=== PATIENT | male | born 1935 | race Caucasian/White ===

== ENCOUNTER 2018-08-29 16:15 | Inpatient (IN) | payer MEDICARE, BC ==
[2018-08-29 16:52] LABS: #Lymphocytes 0.8 thou/uL (1.20-3.40); #Monocytes 0.4 thou/uL (0.11-0.59); #Neutrophils 8.8 thou/uL (1.40-6.50); %Eosinophils 0.1 % (0.0-10.0); %Lymphocytes 7.5 % (21.0-51.0); %Monocytes 4.1 % (0.0-10.0); %Neutrophils 88.3 % (42.0-75.0); Hemoglobin 13.8 g/dL (14.0-18.0); Mean Corpuscular HGB CONC 31.4 g/dL (32.0-36.0); Mean Corpuscular Hemoglobin 26.4 pg (27.0-31.0); Mean Corpuscular Volume 84.1 fL (78.0-98.0); Mean Platelet Volume 8.6 fL (7.4-10.4); Platelet Count 218 thou/uL (130-400); RBC Distribution Width 15.7 % (11.5-14.5); Red Blood Cell (RBC) Count 5.23 mill/uL (4.70-6.10)
[2018-08-29 17:07] LABS: ALT (SGPT) 26 U/L (8-55); AST (SGOT) 24 U/L (5-34); Albumin 4.1 g/dL (3.4-4.8); Alkaline Phosphatase 89 U/L (40-150); Anion Gap 17 mmol/L (10-20); BUN (Urea Nitrogen) 49 mg/dL (8.4-25.7); Bilirubin, Total 1.6 mg/dL (0.2-1.2); Calc. Creatinine Clearance 0 mL/min (70-130); Calcium 9.6 mg/dL (7.8-10.44); Carbon Dioxide 26 mmol/L (23-31); Chloride 107 mmol/L (98-107); Estimated GFR-MDRD 31; Globulin 2.6 g/dL (2.4-3.5); Glucose 188 mg/dL (83-110); Potassium 4.2 mmol/L (3.5-5.1); Protein, Total 6.7 g/dL (5.8-8.1); Sodium 146 mmol/L (136-145)
--- NOTE | 2018-08-29 18:02 | ULT ---
FUltrasound abdomen limited: Right upper quadrant HISTORY: 83-year-old male with right upper quadrant abdominal pain FINDINGS: Gallbladder: Normal wall thickness. No stones or sludge. No pericholecystic fluid. Common duct: 2 mm Liver: Echogenicity within normal limits. Right kidney: No hydronephrosis. Pancreas: Poorly visualized. IMPRESSION: No evidence of cholelithiasis, acute cholecystitis, or biliary obstruction.
[2018-08-29 18:23] LABS: INR-International Normal Ratio 1.8; PTT 29.5 SEC (22.9-36.1); Prothrombin Time 21.4 SEC (12.0-14.7)
[2018-08-29] MEDS ORDERED: Mag-Al 1200 mg/1200 mg/30 ML UDCUP ONE (18:51)
[2018-08-29] MEDS ORDERED: Lidocaine Viscous Sol 2% 15 ml UD Cup ONE (18:51)
[2018-08-29] MEDS ORDERED: Ondansetron ODT 4 MG TAB PO PRN (20:37)
[2018-08-29] MEDS ORDERED: Acetaminophen 325 MG TAB PO PRN (20:37)
[2018-08-29] MEDS ORDERED: Sodium Chloride 0.9% 1,000 ML IV SCH (20:45)
[2018-08-29 20:50] LABS: Bilirubin Small (Negative); Blood, Urine Small (Negative); Clarity CLEAR (Clear); Glucose, Urine (Dipstick) Negative (Negative); Leukocyte Negative (Negative); Nitrite Negative (Negative); Protein, Urine (Dipstick) 100 mg/dL (Neg-Trace); Specific Gravity, Urine 1.024 (1.002-1.036); Urobilinogen 0.2 mg/dL (0.2-1.0); pH, Urine 5.5 (5.0-9.0)
[2018-08-29 20:52] LABS: Bacteria/HPF None Seen HPF (None Seen); Pathc Cast-AUWi Flag 1.22 (0-2.49); Squamous Epithelial 0-3 HPF (0-3)
[2018-08-29 21:14] LABS: Sperm/HPF 2+ HPF (None Seen)
[2018-08-29] MEDS ORDERED: traMADol HCl 50 MG TAB PO PRN (21:25)
[2018-08-29] MEDS ORDERED: Ondansetron ODT 4 MG TAB ONE (21:27)
[2018-08-29] MEDS ORDERED: Pantoprazole 40 MG VIAL ONE (21:27)
--- NOTE | 2018-08-29 21:42 | CT ---
FEXAM: Abdomen and pelvic CT scan without contrast: HISTORY: Abdominal pain COMPARISON: 06/25/2015 FINDINGS: Interval enlargement of large hiatal hernia, which contains significant portion of the stomach. There is adjacent atelectasis of the lung bases Liver: Unremarkable. Gallbladder:Unremarkable. Pancreas:Unremarkable Spleen:Unremarkable. Adrenal glands:Unremarkable. Kidneys:No renal calculus or acute obstruction.Prior cyst of the medial aspect of the superior oliverio e left kidney has decreased in volume, with residual hyperdense cyst component remaining, limited in evaluation by noncontrast technique. Small exophytic cystic structure of the lower pole right kidney is redemonstrated, incompletely assessed. Bowel: Colonic diverticulosis. Decompressed unopacified small bowel. Prominent distention of the stom ach by fluid content Urinary Bladder: The urinary bladder is unremarkable. Adenopathy:No adenopathy within the abdomen or pelvis. Free Air: No free air. Ascites: No ascites. Osseous structures: No acute osseous abnormalities. Density of left inguinal canal could relate to cremasteric reflex of left testis although incompletel y assessed. IMPRESSION: Significant interval enlargement of hiatal hernia containing large portion of markedly distended stom ach. Recommend surgical consultation in light of the patient's acute symptoms. Transcribed Date/Time: 08/29/2018 10:18 PM
[2018-08-29 21:55] VITALS: BMI 26.9
[2018-08-30] MEDS ORDERED: Pantoprazole 40 MG VIAL IVP ONE (01:08)
[2018-08-30] MEDS ORDERED: Sodium Chloride 0.9% (PF) 10 ML VIAL FS PRN ×2 (01:12→01:14)
[2018-08-30] MEDS ORDERED: Morphine 4 MG/ML VIAL SLOW IVP SCH (01:15)
[2018-08-30] MEDS ORDERED: Pantoprazole 40 MG VIAL IVP SCH ×5 (01:15→15:45)
[2018-08-30] MEDS ORDERED: Ondansetron PF 4 MG/2 ML Vial IVP PRN (01:17)
[2018-08-30] MEDS ORDERED: Pantoprazole 80 MG in Sodium Chloride 0.9% 100 ML IVP SCH ×2 (01:30→16:30)
[2018-08-30] MEDS ORDERED: Pantoprazole 80 MG, Admixture Fee 1 EACH in Sodium Chloride 0.9% 100 ML IVP SCH (01:30)
[2018-08-30 01:36] LABS: Hemoglobin 12.6 g/dL (14.0-18.0)
--- NOTE | 2018-08-30 03:46 | HP ---
CHIEF COMPLAINT: Abdominal pain. HISTORY OF PRESENT ILLNESS: Mr. Walton is an 83-year-old male, who presents complaining of persistent epigastric pain. He states it all began earlier this week and he saw his primary care physician, who due to slightly elevated creatinine of 1.54, had been taken off the lansoprazole and placed on an antacid instead. The patient states he previously had issues with epigastric pain associated with hiatal hernia and since making changes to his medications, he began having increasing epigastric pain. The patient states that the pain has been relieved by self-induced vomiting. Today, however, he attempted to make himself vomit and noted coffee-grounds emesis. The pain did not ease as it has before and has persisted. He reports a severe 10/10 squeezing pain that lasts few seconds and then eases into a constant discomfort, which he rates at an 8/10. The patient has had increased belching. His last meal was last night and he denies having any vomiting after eating, but did note some increased discomfort about 4 hours after his meal. The patient denies having any bright red blood in the stools or bright red blood in his emesis. Denies having any recent fevers, chills, or sweats. The patient had been told he might undergo an endoscopy and is very concerned due to the fact that he is on Coumadin and therefore, he is very hesitant to undergo any type of procedure. He also states he was not aware that endoscopies were done in the hospital and he seems hesitant to undergo evaluation for such procedure. I did explain to the patient that this would all be dependent on assessment and recommendations made by the GI specialist. REVIEW OF SYSTEMS: He denies having any chest pain, palpitations, or shortness of breath. No headaches or dizziness. Denies having any issues with his stools such as constipation, diarrhea, melena, or hematochezia. Denies having any urinary symptoms such as dysuria, hematuria, urgency, or frequency. He has not been lightheaded or dizzy. Denies having any shortness of breath at rest or with exertion. All other review of systems are negative. PAST MEDICAL HISTORY: 1. 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 2. Hiatal hernia. 3. Previous aortic valve replacement. 4. Lithotripsy. 5. Nephrolithiasis. 6. Hypertension. 7. Hyperlipidemia. SOCIAL HISTORY: The patient denies having any recent alcohol, tobacco use, or illicit drug use. ALLERGIES: NO KNOWN DRUG ALLERGIES. CURRENT MEDICATIONS: 1. Aspirin. 2. Warfarin. 3. Quinapril. 4. Potassium citrate. 5. Finasteride. 6. Amlodipine. 7. Tamsulosin. 8. Rosuvastatin. PHYSICAL EXAMINATION: GENERAL: The patient appears to be in intermittent discomfort throughout his assessment. SKIN: Normal, warm, and dry. No jaundice. VITAL SIGNS: Temperature 98.1, pulse 106, respirations 18, blood pressure 120/75, and O2 saturation 94% on room air. HEENT: Normocephalic and atraumatic. Pupils are equal, round, and reactive to light. Sclerae without icterus. Pharynx is clear. NECK: Supple. LUNGS: Clear to auscultation bilaterally. CARDIAC: Regular rate and rhythm. ABDOMEN: Soft, nondistended with epigastric tenderness to light palpation. No rigidity. No renal angle tenderness. EXTREMITIES: No swelling or edema. NEUROLOGIC: Alert and oriented x3. LABORATORY DATA: White blood count 10, hemoglobin 13.8, hematocrit 44, and platelets 218. PT 21.4, INR 1.8, and PTT 29.5. Sodium 146, potassium 4.2, BUN 49, creatinine 2.06, GFR 31, glucose 188, calcium 9.6, total bilirubin 1.6, AST 24, ALT 26, alkaline phosphatase 89, albumin 4.1, and lipase 39. Urinalysis notable for 100 of protein, trace ketones, small amount of blood, small bilirubin, 7 to 10 red blood cells, 4 to 6 white blood cells, 11 to 20 hyaline casts, and 2+ sperm. IMAGING DATA: Abdominal ultrasound; no evidence of cholelithiasis, acute cholecystitis, or biliary obstruction. IMPRESSION AND PLAN: Mr. Walton is an 83-year-old man presenting with epigastric pain and coffee-grounds emesis, following self-induced vomiting. The patient is being admitted for management of the following; 1. Coffee-ground emesis. I have explained to the patient that we will be placing him on pantoprazole given the suspected gastrointestinal bleed. The patient insisted it only happened once and it seemed more brown than black and was self-induced. He denies any lightheadedness or dizziness. The patient seems reluctant to undergo any investigations such as an esophagogastroduodenoscopy, however, explained that we are consulting the GI specialist, who would make recommendations. The patient was unclear that it was possible to have an inpatient endoscopy. At one point, the patient seemed to receive the PPI and go home. However, he is agreeable to be admitted for further management and investigations. We will monitor H and H and obtain a type and screen. We will hold Coumadin given the gastrointestinal bleed. 2. Abdominal pain. At present, the patient wishes to receive the pantoprazole for his pain. If pain persists, we will provide analgesia. For now, he has been prescribed Tylenol p.r.n. Again, the patient seems rather skeptical about his care and receiving any medications. I did prescribe p.r.n. tramadol. I have requested a CT abdomen without contrast as he may undergo endoscopic evaluation tomorrow. The patient will remain n.p.o. after midnight. 3. Acute kidney injury. The patient will receive gentle hydration. We will continue to monitor. Vital signs are stable. He is mildly tachycardic likely due to his pain and blood pressure is normal. 4. Gastrointestinal prophylaxis. 5. Deep venous thrombosis prophylaxis. Mechanical SCDs only. The patient's case was discussed with Dr. Randhawa, who agrees with plan of care as described above. Job ID: [id number]
[2018-08-30 06:10] LABS: Band 4 % (5-11); Hemoglobin 11.4 g/dL (14.0-18.0); Hypochromia SLIGHT = 6-15 cells (100X) (0-5/hpf); Lymphocytes 3 % (21-51); MDiff Complete? YES; Mean Corpuscular HGB CONC 32.2 g/dL (32.0-36.0); Mean Corpuscular Hemoglobin 26.9 pg (27.0-31.0); Mean Corpuscular Volume 83.6 fL (78.0-98.0); Mean Platelet Volume 9.1 fL (7.4-10.4); Monocytes 5 % (0-10); Neutrophil 88 % (42-75); Platelet Count 205 thou/uL (130-400); Platelet Morphology Comment Appears Adequate; RBC Distribution Width 15.8 % (11.5-14.5); Red Blood Cell (RBC) Count 4.24 mill/uL (4.70-6.10)
[2018-08-30 06:18] LABS: Anion Gap 12 mmol/L (10-20); BUN (Urea Nitrogen) 81 mg/dL (8.4-25.7); Calc. Creatinine Clearance 32 mL/min (70-130); Calcium 8.7 mg/dL (7.8-10.44); Carbon Dioxide 27 mmol/L (23-31); Chloride 111 mmol/L (98-107); Estimated GFR-MDRD 31; Glucose 169 mg/dL (83-110); Potassium 4.3 mmol/L (3.5-5.1); Sodium 146 mmol/L (136-145)
[2018-08-30] MEDS ORDERED: Sodium Bicarbonate 50 MEQ in Sodium Chloride 0.45% 1,000 ML IV SCH ×2 (07:00→16:33)
--- NOTE | 2018-08-30 09:15 | ULT ---
FUS Renal Bilateral STANDARD History: [Acute kidney injury. Hematuria.] Comparison: CT abdomen and pelvis prior day Findings: Real-time grayscale and color evaluation of the kidneys and urinary bladder was performed. Right kidney measures 9.7 x 5.4 x 4.8 cm and left kidney measures 10.4 x 4.6 x 4.8 cm. The cortices a re echogenic. Urinary bladder is unremarkable. No renal mass, hydronephrosis, or abnormal calcificati ons. Impression: No evidence for obstructive uropathy.
[2018-08-30] MEDS ORDERED: Morphine 2 MG/ML SYRINGE SLOW IVP PRN (11:20)
[2018-08-30] MEDS ORDERED: PROPOFOL 200 MG/20 ML VIAL ONE (15:09)
[2018-08-30] MEDS ORDERED: PHENYLEPHRINE-NS 100 MCG/ML 10 ML SYRINGE ONE (15:09)
[2018-08-30] MEDS ORDERED: Lidocaine 1% PF 5 ML VIAL ONE (15:09)
--- NOTE | 2018-08-30 16:47 | PRG ---
DATE OF SERVICE: 08/30/2018 SUBJECTIVE: Mr. Walton is a very pleasant 83-year-old gentleman with past medical history significant for GERD, hiatal hernia, chronic kidney disease, and history of mechanical aortic valve replacement in 1997, who presented to the hospital with complaints of coffee-ground emesis. The patient has been admitted with GI bleed, and his Coumadin has been held. He continues to complain of epigastric pain as well as some continued black emesis, which is evident in the emesis bag at his bedside. Awaiting consultation from both surgical and GI. The patient denies any chest pain or shortness of breath at this time. He denies any fever or chills. No diarrhea. OBJECTIVE: VITAL SIGNS: Blood pressure 132/80, pulse is 98, and O2 saturation is 97% on room air. The patient is afebrile. GENERAL: This is a well-appearing elderly gentleman, sitting up in a chair, in no acute distress. HEENT: Head, atraumatic and normocephalic. Mucous membranes are moist. No nasal discharge. NECK: Supple. No lymphadenopathy. No JVD. No carotid bruits. CV: S1 and S2. Regular rate and rhythm. Positive S2 maintenance mechanic click. LUNGS: Regular respiratory rate and pattern. Clear to auscultation bilaterally. ABDOMEN: Positive bowel sounds. Nontender. No guarding or rebound. SKIN: Warm and dry. No rashes. EXTREMITIES: +2 DP pulses bilaterally. No edema. LABORATORY RESULTS: White blood cell count is 13, hemoglobin 11.4, and hematocrit 35.5. Sodium 146, potassium 4.3, chloride 111, BUN is 81, and creatinine 2.09. ASSESSMENT: 1. Coffee-ground emesis/gastrointestinal bleed/epigastric pain. 2. Anemia secondary to above, hemoglobin 11.4, was 13.8 on arrival. 3. Large hiatal hernia, larger per CT scan this hospitalization. 4. History of mechanical aortic valve, on chronic anticoagulation with Coumadin. INR subtherapeutic on arrival at 1.8. 5. Acute on chronic renal insufficiency, creatinine 2.06, baseline appears to be 1.5. 6. The patient with pacemaker in-situ. PLAN: The patient's clinical picture is complicated in the setting of GI bleeding along with mechanical aortic valve, which requires lifelong anticoagulation to avoid valve thrombosis. We will obtain echocardiogram and consult Cardiology. GI and Surgical consults are pending. Given the patient's complicated clinical picture, he does meet inpatient status and this was discussed with Dr. Sheffield who agrees. We will continue to watch H and H and monitor his symptoms closely. Further recommendations based on hospital course. Job ID: [id number]
[2018-08-30] MEDS ORDERED: EPINEPHrine 1 MG/10 ML Abboject SYRINGE ONE (17:32)
[2018-08-30] MEDS ORDERED: Promethazine HCl 25 MG/ML VIAL IM PRN ×2 (18:03→19:02)
[2018-08-30] MEDS ORDERED: Ondansetron HCl/PF 4 MG/2 ML Vial IVP PRN (18:03)
[2018-08-30] MEDS ORDERED: Promethazine HCl 25 MG/ML VIAL SLOW IVP PRN (18:03)
[2018-08-30] MEDS ORDERED: Promethazine HCl 25 MG/ML VIAL ONE (18:15)
[2018-08-30] MEDS: Sodium Chloride 0.9% 1,000 ML IV SCH ×2 (19:10→22:55)
--- NOTE | 2018-08-31 02:10 | CON ---
DATE OF CONSULTATION: HISTORY OF PRESENT ILLNESS: Ronnie Walton is an 83-year-old white male who is followed with Dr. Souza for many years. In 1987, he underwent mechanical aortic valve replacement. He had a 40% to 50% proximal right coronary artery stenosis at that time. Cardiac CT in October 2015, showed no significant right coronary artery stenosis. He did not have any significant coronary artery disease. He has had a pacemaker placed. Also in January of 2018, he underwent cardiac PET scan, which revealed no evidence of ischemia. He is chronically anticoagulated due to his mechanical aortic valve. 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 Mr. Walton is still heavily sedated from EGD today. History was provided by his . He has been on lansoprazole; however, this was stopped due to his creatinine of 1.54 and so he was placed on antacid. His epigastric pain has increased since that time and apparently the only thing that seems to relieve his epigastric pain is self-induced vomiting. His states that he would induce vomiting and 1 such vomitus he showed her and it basically was coffee-ground emesis and so he came for further evaluation. He has not had any chest discomfort or shortness of breath. PAST MEDICAL HISTORY: Hiatal hernia, aortic stenosis with aortic valve replacement (mechanical), hypertension, hyperlipidemia, nephrolithiasis. PAST SURGICAL HISTORY: Lithotripsy, aortic valve replacement with mechanical valve in 1997, esophageal dilatation, pacemaker placement for bradycardia. MEDICATIONS: 1. Amlodipine 10 mg daily. 2. Aspirin 81 mg daily. 3. Warfarin 5 mg daily. 4. Proscar 5 mg daily. 5. Quinapril 10 mg daily. 6. Rosuvastatin 20 at bedtime. 7. Flomax 0.4 daily. ALLERGIES: NONE. SOCIAL HISTORY: He does not smoke or drink. REVIEW OF SYSTEMS: Unobtainable with the patient still recovering from anesthesia. PHYSICAL EXAMINATION: VITAL SIGNS: 114/67, pulse 94. HEENT: SUSHIL. NECK: Supple. CHEST: Clear. CARDIAC: S1 is normal. There is a prosthetic click S2. There is a 2/6 systolic ejection murmur. ABDOMEN: Normal bowel sounds without tenderness or organomegaly. EXTREMITIES: Revealed no clubbing, cyanosis, or edema. NEUROLOGIC: Grossly intact. SKIN: Warm and dry. LABORATORY DATA: EKG revealed atrial sensing and ventricular pacing. Most recent echocardiogram was in December 2017, which revealed ejection fraction of 55% to 60%, mild mitral annular calcification, mild mitral regurgitation, mild tricuspid regurgitation, mild pulmonic regurgitation and mechanical aortic valve with normal function. Hemoglobin 11.4, hematocrit 35.5, white count 51649, platelets 205,000, INR 1.8. Sodium 146, potassium 4.3, chloride 111, carbon dioxide 27, BUN 81, creatinine 2.09. IMPRESSION: 1. 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 2. Status post mechanical aortic valve replacement in 1997. 3. Mild coronary artery disease. 4. Status post pacemaker placement. 5. Hypertension. 6. Hyperlipidemia. 7. Hiatal hernia. 8. Acute kidney injury on chronic kidney disease. PLAN: Certainly, Mr. Walton's anticoagulation needs to be held at this time. It will need to be reinstituted upon the direction of the plumber supervisor. I did discuss with the increased risk of clot forming on the valve or embolic event possibly resulting in stroke without anticoagulation. However, at the present time, he cannot be anticoagulated. Job ID: [id number]
[2018-08-31 04:04] LABS: Creatinine, Urine 62.58 mg/dL (63-166); Protein, Urine Random Quant Less than 10 mg/dL (1-14); Sodium, Urine 46 mmol/L (Not Available)
[2018-08-31 06:50] LABS: #Lymphocytes 1.3 thou/uL (1.20-3.40); #Monocytes 0.6 thou/uL (0.11-0.59); #Neutrophils 8.2 thou/uL (1.40-6.50); %Basophils 0.1 % (0.0-1.0); %Eosinophils 0.2 % (0.0-10.0); %Lymphocytes 12.8 % (21.0-51.0); %Monocytes 5.7 % (0.0-10.0); %Neutrophils 81.2 % (42.0-75.0); Hemoglobin 8.1 g/dL (14.0-18.0); Mean Corpuscular HGB CONC 31.5 g/dL (32.0-36.0); Mean Corpuscular Hemoglobin 26.9 pg (27.0-31.0); Mean Corpuscular Volume 85.4 fL (78.0-98.0); Mean Platelet Volume 8.6 fL (7.4-10.4); Platelet Count 166 thou/uL (130-400); RBC Distribution Width 15.7 % (11.5-14.5); White Blood Cell (WBC) Count 10.1 thou/uL (4.8-10.8)
[2018-08-31 07:00] LABS: Anion Gap 7 mmol/L (10-20); BUN (Urea Nitrogen) 67 mg/dL (8.4-25.7); Calc. Creatinine Clearance 39 mL/min (70-130); Calcium 7.8 mg/dL (7.8-10.44); Carbon Dioxide 30 mmol/L (23-31); Chloride 118 mmol/L (98-107); Estimated GFR-MDRD 39; Glucose 126 mg/dL (83-110); Potassium 4.3 mmol/L (3.5-5.1); Sodium 151 mmol/L (136-145)
--- NOTE | 2018-08-31 07:24 | CON ---
DATE OF CONSULTATION: 08/30/2018 REASON FOR CONSULT: Hematemesis. HISTORY OF PRESENT ILLNESS: Mr. Walton is an 83-year-old, who has had intermittent issues of a hiatal hernia and vomiting or epigastric pain. For a long time would not take a PPI on a regular basis, but has been doing so up until about May or June. At that time, he saw Dr. Beck Recio, his PCP and it was noted that he had a little bit of a bump in his creatinine 1.29 to 1.54. At that time, the lansoprazole he was taking was discontinued and he was put on Pepcid AC. Over the weekend, on Thursday, he ate some hot dogs and had a beer and then had a Coke and then had some cassava and he began to have a lot of regurgitation, heartburn, and vomiting ultimately. He would make himself vomit to get relief from upper abdominal pain. He had to do that a couple of times on Thursday evening and then again on Thursday and then he noticed coffee-grounds and that has brought him to the hospital. Here in the emergency room, he was given Protonix. He had a white count of 13.5, 11.4 this morning; platelets were 204. He is on Coumadin. His INR is 1.8. BUN 81 and creatinine is 2.09, had been 49 and 2.06 yesterday, and on 08/13, it had been 29 and 1.54. Otherwise, his liver function tests were normal except for bilirubin of 1.6 yesterday, 1.1 the day before and normal lipase at 39. Presently, last throughout this morning, he states he is intermittently spitting up coffee-ground material. He states he can handle secretions. He is not sure he can hold anything down right now, however. He received morphine once for pain. REVIEW OF SYSTEMS: No chest pain or shortness of breath, dyspnea on exertion, headache, melena, hematochezia, dysuria, frequency, or urgency. PAST MEDICAL HISTORY: Pacemaker for bradycardia, hiatal hernia, nonoperative management, aortic valve replacement in 1997, lithotripsy, nephrolithiasis, hypertension, hyperlipidemia. SOCIAL HISTORY: The patient denies having any drugs or tobacco, although he did have a beer on Thursday. ALLERGIES: NO KNOWN DRUG ALLERGIES. MEDICATIONS: At home, 1. Aspirin. 2. Warfarin. 3. Quinapril. 4. Potassium citrate. 5. Finasteride. 6. Amlodipine. 7. Tamsulosin. 8. Rosuvastatin. Present medications now, 1. Tylenol. 2. Morphine. 3. Zofran. 4. Protonix drip. 5. Sodium bicarb. PHYSICAL EXAMINATION: GENERAL: The patient is sitting up in rock chair. He has got 2 emesis cups at the bedside with coffee-grounds emesis. VITAL SIGNS: Temperature 97, pulse 92, blood pressure 132/80. HEENT: His conjunctivae and sclerae are clear. LUNGS: Clear. HEART: Regular rate and rhythm without clicks, rubs, or murmurs. ABDOMEN: Soft and nontender. There is no rebound. There is no guarding. There is no succussion splash. It is nondistended. There is no shifting dullness or fluid wave. EXTREMITIES: No clubbing, cyanosis, or edema. LABORATORY STUDIES: As per HPI. IMAGING: CT scan of the abdomen and pelvis on 08/29/2018 showed a very large hiatal hernia in both his stomach and the chest. There were no volvulus features on my examination of the study. The hernia was much larger and heavier on previous studies and much more distended, outlet obstruction has to be considered. Renal ultrasound normal. ASSESSMENT: This is an 83-year-old who is admitted to the hospital with vomiting for about 48 hours intermittently in the setting of a large hiatal hernia which shows to be quite distended and enlarged on CT from previous studies. On my evaluation of the scan, there seems to be no overt volvulus. He was having to make himself throw out to make himself feel better. He is not vomiting now, but does have an emesis bag at the bedside. He does not seem to have lost large amount of blood. He is on Coumadin. His INR is 1.8, does not show signs of acute hemorrhage. Differential diagnosis does include an irritated hiatal hernia with reflux and erosions. Brandon's ulcers could be a concern with edema, but the main concern would be I think we have to rule out if there is any type of paraesophageal hernia or volvulus. Again, the images do not necessarily indicate a pattern to the gastric mucosa but in light of his continued decided to move on with that today. Job ID: [id number]
--- NOTE | 2018-08-31 07:48 | CON ---
DATE OF CONSULTATION: 08/30/2018 CONSULTING PHYSICIAN: Domenica Spring MD REASON FOR CONSULTATION: Acute kidney injury. HISTORY OF PRESENT ILLNESS: The patient is an 83-year-old male with known history of nephrolithiasis on potassium citrate, status post aortic valve replacement on chronic anticoagulation with Coumadin, high-grade bradycardia, status post pacemaker, who was brought in due to acute onset of hematemesis and epigastric pain. The patient also was found to have elevated creatinine necessitating Nephrology consult. The patient reported developing epigastric pain since about 1 week. He had seen the PCP and was found to have elevated creatinine of 1.54, hence lansoprazole was discontinued and Prevacid was started. The patient reported eating some [place] food, which was said to be spicy. Following which, abdominal pain worsened and was associated with hematemesis, dry heaves, hence he was unable to eat or drink subsequently. Due to worsening pain, the patient presented to the hospital and was subsequently admitted. He denied hematochezia. He also denied chest pain, shortness of breath, headache, worsening leg pain, or worsening leg swelling. He was admitted to chronic bilateral leg edema. He denied prior history of chronic kidney disease, though he was told he had elevated creatinine about a few days ago. He denied difficulty urinating, but admitted to blood in urine as was told by his urologist recently. He has history of nephrolithiasis, status post lithotripsy and is currently on potassium citrate. PAST MEDICAL HISTORY: 1. Hiatal hernia. 2. Nephrolithiasis. 3. Aortic stenosis, status post replacement. 4. High-grade bradycardia, status post pacemaker placement. 5. Hypertension. 6. Hyperlipidemia. PAST SURGICAL HISTORY: 1. Aortic valve replacement. 2. Pacemaker placement. FAMILY HISTORY: Reviewed, but noncontributory. SOCIAL HISTORY: The patient lives with family. Denied tobacco, alcohol, or recreational drug use. ALLERGIES: NO KNOWN DRUG ALLERGIES REPORTED. MEDICATIONS: Home medications: 1. Aspirin 81 mg daily. 2. Warfarin. 3. Amlodipine 10 mg p.o. daily. 4. Finasteride 5 mg p.o. daily. 5. Potassium citrate 10 mEq daily. 6. Quinapril 10 mg daily. 7. Crestor 20 mg daily at bedtime. 8. Tamsulosin 0.4 mg daily. Current hospital medications: 1. Sodium chloride infusion at 55 mL/h. 2. Protonix infusion. 3. Morphine 2 mg IV push every 4 hours p.r.n. for pain. 4. Zofran IV q.6 hours p.r.n. for nausea and vomiting. 5. Tramadol 50 mg p.o. q.4 hours p.r.n. for pain. REVIEW OF SYSTEMS: Twelve-point review of system performed was negative other than pertinent positives and negatives included in the history of present illness. PHYSICAL EXAMINATION: VITAL SIGNS: Temperature 97.5, pulse 98, respiratory rate 18, SpO2 of 97 on room air, and blood pressure 108/66. GENERAL: Healthy-looking elderly male, in mild painful distress. Afebrile. Anicteric. Acyanotic. HEENT: Normocephalic, atraumatic. Pupils are reacting to light. Oral mucosa is moist. NECK: Supple, nontender with full range of motion. No masses felt. CARDIOVASCULAR: Regular rhythm and rate with normal heart sounds. Systolic murmur, which is closing with metallic click noted. RESPIRATORY: Good air entry bilaterally with no obvious crackle or rhonchi or use of accessory muscles. GASTROINTESTINAL: Full, soft, with epigastric tenderness. Bowel sound is positive. EXTREMITIES: Grossly normal looking and atraumatic. Mild bilateral leg edema noted. No erythema or cyanosis. Distal pulses are palpable. NEUROLOGIC: Conscious, alert, oriented x3 with appropriate mental status. Cranial nerves II through XII are intact. The patient moves all extremities. DIAGNOSTIC DATA: CBC today showed WBC count of 13, hemoglobin of 11.4, MCV of 83.6, and platelet of 205. Of note, on presentation on August 29, 2018, hemoglobin was 13.8 and WBC count was 10. BMP today showed sodium 146, potassium 4.3, chloride 111, CO2 of 27, BUN 81, creatinine 2.09, glucose 169, and calcium 8.7. Of note on presentation, sodium was 146, BUN was 49, creatinine was 2.06, and CO2 was 26. The patient also had creatinine of 1.54 on August 13 and 1.29 on February 11, 2018. Review of prior labs showed baseline creatinine ranging from 1.2 to 1.4. Coagulation panel showed PT 21.4, INR 1.8, and PTT 29.5. Urinalysis showed specific gravity of 1.02, positive protein, trace ketones, small blood and small bilirubin. Nitrite, glucose, and leukocyte esterase were negative. Microscopy showed 7 to 10 red blood cells and 4 to 6 white blood cells with 11 to [address] scan of the abdomen and pelvis performed on August 29, 2018, showed significant interval enlargement of hiatal hernia containing large portions of markedly distended stomach. Surgical consult was recommended. ASSESSMENT: 1. Acute kidney injury: Most likely due to hemodynamic factors related to volume depletion from poor oral intake and gastrointestinal bleeding. The patient also is on JAIDA inhibitor, quinapril, which works against the patient in a state of hypovolemia. The patient is currently n.p.o. 2. Chronic kidney disease, stage 3: Etiology is unclear but may be related to old age and hypertension.The patient also has proteinuria on urinalysis. Baseline creatinine is 1.2 to 1.4. 3. Proteinuria. 4. Volume status: Though the patient has bilateral leg edema, which is chronic, there is evidence of volume contraction, given acute kidney injury and poor oral intake as well as gastrointestinal bleeding. 5. Acid-base balance: Acceptable. Increase in CO2 most likely is suggestive of contraction alkalosis. 6. Electrolytes: Acceptable. 7. Hypertension: Blood pressure is currently soft, most likely related to volume depletion. 8. Nephrolithiasis. On potassium citrate PLAN: 1. We will start the patient on gentle IV hydration with bicarb containing IV fluid given increasing hyperchloremia and history of CHF. 2. We will also get renal ultrasound given history of nephrolithiasis and hematuria as well as proteinuria. We will also get urine protein-creatinine ratio and urine electrolytes. 3. We will hold antihypertensives. Also aspirin and Coumadin have been held in light of GI bleeding. Many thanks for involving us in the care of this patient. We will continue to follow along with you. Job ID: [id number] [facility]ITAL[facility]
--- NOTE | 2018-08-31 08:27 | CON ---
DATE OF CONSULTATION: 08/30/2018 CHIEF COMPLAINT: Abdominal pain. HISTORY OF PRESENT ILLNESS: Mr. Walton is an 83-year-old male with a past medical history significant for hiatal hernia and aortic valve replacement, on chronic Coumadin anticoagulation therapy. He reports to the emergency department with a chief complaint of epigastric pain that began earlier this week. He reports that in the past, he had been instructed to take lansoprazole for his epigastric pain and hiatal hernia by Dr. Kenny, has been evaluated in the outpatient setting. Recently, he presented to his primary care physician's office for a routine checkup and it was noted that his creatinine was elevated. He was instructed to stop lansoprazole earlier this week. He reports upon discontinuing the medication that he has had consistent epigastric pain. He reports that his epigastric pain is substernal and burning in nature in the past, it has been resolved by self-induced vomiting. This time, when he vomited, he reported coffee-grounds emesis. No rohan blood and no resolution of the abdominal pain. At the time of admission, he reported severe abdominal pain that has since resolved with IV morphine and IV Protonix. Upon exam, he reports his abdominal pain is minimal. He has not been tolerating p.o. and is not feeling hungry at this point. He denies any shortness of breath or substernal pressure. No palpitations or syncope. He denies any diarrhea, constipation, or abdominal upset. He has been afebrile at this point. Trauma service was consulted by primary admitting team to evaluate hiatal hernia and need for possible surgical intervention. The patient is concerned about any surgical or endoscopic intervention secondary to chronic Coumadin use for his aortic valve replacement. REVIEW OF SYSTEMS: A 10-point review of systems performed and negative with exception as noted above. PAST MEDICAL HISTORY: 1. Bradycardia status post pacemaker placement. 2. Aortic valve replacement. 3. Hiatal hernia. 4. Nephrolithiasis status post lithotripsy x2. 5. Hypertension, controlled on oral medication. 6. Hyperlipidemia. SOCIAL HISTORY: Denies tobacco, alcohol, or drug use. ALLERGIES: NO KNOWN DRUG ALLERGIES. CURRENT MEDICATIONS: 1. Acetaminophen. 2. Morphine. 3. Pantoprazole. 4. Tramadol. PHYSICAL EXAMINATION: GENERAL: The patient in no acute distress. Resting comfortably in chair. at bedside reports the patient is "loopy" secondary to recent morphine administration. HEENT: Normocephalic, atraumatic. Extraocular motion intact. Vision and hearing grossly normal. HEART: Regular rate and rhythm. No obvious murmur. LUNGS: Good respiratory movement. Clear to auscultation bilaterally. ABDOMEN: Soft, tender to palpation over the epigastric area. No rebound tenderness or guarding. Distention present. Bowel sounds are active. EXTREMITIES: Neurovascularly intact. No edema present. SKIN: Warm. Normal turgor. No jaundice. NEUROLOGIC: Alert and oriented x3. VITAL SIGNS: Temp 97.5, pulse 92, respirations 20, oxygen saturation 94% on room air, blood pressure 132/80. LABORATORY DATA: White blood cell count 13, hemoglobin 11.4. INR 1.8. Sodium 146, chloride 111, BUN 81, creatinine 2.09. IMAGING: Abdomen/pelvis CT positive for hiatal hernia with a large portion of markedly distended stomach. Abdominal ultrasound, no evidence of cholelithiasis, acute cholecystitis, or biliary obstruction noted in the right upper quadrant. IMPRESSION AND PLAN: Mr. Walton is an 83-year-old male presenting with a known hiatal hernia. Trauma team was asked to evaluate for possible surgical intervention. 1. Probable upper gastrointestinal bleed, likely secondary to acute gastritis. I agree with current IV proton pump inhibitor therapy. No surgical intervention is indicated at this time. Recommend GI consult with possible upper EGD. 2. Aortic valve replacement in the setting of possible upper gastrointestinal bleeding. Recommend continuing to hold anticoagulation therapy at this time. Recommend mechanical SCDs for venous thromboembolism prophylaxis. It is unlikely that hiatal hernia is the cause for acute epigastric pain and possible upper gastrointestinal bleed. No surgical intervention indicated at this time. Please contact for further evaluation or questioning. It will be discussed with Dr. Fabio Love upon ending this dictation. Changes to plan will be added to note as needed. Job ID: [id number] [facility]
--- NOTE | 2018-08-31 08:28 | PDOC.CTH ---
Cardiology Progress Note - Subjective The pt seen and examined. No overnight events. No cardiac complaints. His last Echo was done at Dr Souza' office in 01/2018 - Objective Vital Signs Temp Pulse Resp BP Pulse Ox 08/31/18 07:23 98.3 F 65 16 114/69 95 08/31/18 04:00 98.0 F 75 18 136/69 94 L 08/31/18 00:00 98.1 F 84 16 142/66 H 95 Weight 177 lb 9.6 oz 08/30/18 08/31/18 09/01/18 06:59 06:59 06:59 Intake Total 10 650 Output Total 250 Balance 10 400 - Physical Examination General/Neuro: alert & oriented x3 Neck: no JVD present Lungs: CTA Heart: RRR Abdomen: soft Extremities: other: (No edema) - Labs Result Diagrams: 08/31/18 13:17 08/31/18 06:07 - Assessment/Plan 1. GI bleed 2/2 Catarina-Reeves tear and s/p EGD on 08/30/2018 - tolerate Ice chips; managed by GI 2. CAD - stable; will resume BBlocker and ASA as tolerate and when ok by GI 3. S/p mechanical AVR in 1997 - holding Coumadin 2/2 GI bleed; will resume once ok by GI 4. HTN - stable without any BP med for now 5. Hx of PM placement 6. ANIVAL on CKD - improving 7. Anemia 2/2 GI bleed 8. Dehydration: vol. replacement. 9. Hypernatremia. Should correct with free water. MAR reviewed Pt. seen and eval. by me. I agree with the A/P by the REGIONAL COORDINATOR. Chest clear. Irreg. rhythm. Audible mechanical AV. Continue as above. gjm Review of Systems - Review of Systems Constitutional: reports: no symptoms reported EENTM: reports: no symptoms reported Respiratory: reports: no symptoms reported Cardiac (ROS): reports: no symptoms reported ABD/GI: reports: no symptoms reported : reports: no symptoms reported Musculoskeletal: reports: no symptoms reported
[2018-08-31] MEDS: Pantoprazole 40 MG VIAL IVP SCH ×2 (09:01→22:54)
--- NOTE | 2018-08-31 09:02 | OP ---
DATE OF PROCEDURE: 08/30/2018 PREPROCEDURE DIAGNOSES: 1. Emesis for several days. 2. Continued emesis here in the hospital. POSTPROCEDURE DIAGNOSES: 1. Large hiatal hernia with 80% in the stomach and the chest. The hiatus is about 45 cm at incisura, orifice, GE junction and Z-line to about 30 cm. 2. 700 mL of coffee-ground material evacuated from the stomach. 3. Catarina-Reeves tear below the GE junction was noted with large clot that was injected with 1:10,000 epinephrine, 9 mL and 3 hemoclips were placed in this. 4. Duodenum normal. 5. No signs of volvulus. RECOMMENDATIONS: 1. IV PPI and then convert to p.o., he is going to stay on lifelong. 2. If there is a concern over renal function, consult Nephrology, but I think that his elevated BUN and creatinine are primary related to dehydration, then PPIs. 3. Hold Coumadin until he has no signs of bleeding for 48 hours, then resume slowly. ANESTHESIA: TIVA. PROCEDURE IN DETAIL: The patient was informed of the risks, benefits, and possible complications of endoscopy including perforation, reaction for medication, aspiration. Informed consent was obtained. The patient was brought to endoscopy suite, where he was sedated in a gradual fashion. Once he was comfortable, a bite block was placed inside his orifice. The endoscope was advanced through the esophagus, stomach, and second and third portion of the duodenum and slowly removed. The duodenum was clear. The stomach was notable for 700 mL of coffee-ground material which was cleared, suctioned. The hiatal hernia was noted above with measurements noted above. On retroflexed views, a large Catarina-Reeves tear was noted with a blood clot and some oozing. It was injected with 1:10,000 epinephrine in both forward and reverse positions and then 3 hemoclips were placed with good hemostasis. The scope was used to desufflate the stomach and then carefully removed. The esophagus otherwise appeared normal. The patient tolerated the procedure well without complications. Job ID: [id number]
--- NOTE | 2018-08-31 10:58 | PDOC.PN ---
- Subjective Encounter Start Date: 08/31/18 Encounter Start Time: 10:56 Subjective: no further hemetemesis - Objective Resuscitation Status - Order Detail: 08/29/18 20:37 Resuscitation Status Routine Co-Sign Provider: Resuscitation Status: FULL: Full Resuscitation MAR Reviewed: Yes Vital Signs & Weight: Vital Signs (12 hours) Temp Pulse Resp BP Pulse Ox 08/31/18 07:23 98.3 F 65 16 114/69 95 08/31/18 04:00 98.0 F 75 18 136/69 94 L 08/31/18 00:00 98.1 F 84 16 142/66 H 95 Weight Weight 177 lb 9.6 oz I&O: 08/30/18 08/31/18 09/01/18 06:59 06:59 06:59 Intake Total 10 650 Output Total 250 Balance 10 400 Result Diagrams: 08/31/18 06:07 08/31/18 06:07 Phys Exam - Physical Examination Neck: no JVD Respiratory: clear to auscultation bilateral Cardiovascular: RRR crisp valve sounds Gastrointestinal: soft, positive bowel sounds Musculoskeletal: no edema Dx/Plan (1) Upper GI hemorrhage Code(s): K92.2 - GASTROINTESTINAL HEMORRHAGE, UNSPECIFIED Status: Acute (2) Catarina-Reeves tear Code(s): K22.6 - GASTRO-ESOPHAGEAL LACERATION-HEMORRHAGE SYNDROME Status: Acute (3) Anticoagulant long-term use Code(s): Z79.01 - COST CONTROL SUPERVISOR (CURRENT) USE OF ANTICOAGULANTS Status: Acute (4) Status post aortic valve replacement with prosthetic valve Status: Chronic (5) HTN (hypertension) Code(s): I10 - ESSENTIAL (PRIMARY) HYPERTENSION Status: Chronic Qualifiers: Hypertension type: essential hypertension Qualified Code(s): I10 - Essential (primary) hypertension - Plan cont off warfarin -: PT/ INR now, serial H&H -: cont iv ppi q12h * .
[2018-08-31] MEDS ORDERED: Sodium Chloride 0.45% 1,000 ML IV SCH (12:30)
--- NOTE | 2018-08-31 12:50 | PRG ---
DATE OF SERVICE: 08/31/2018 SUBJECTIVE: The patient is feeling a lot better. No further hematemesis, and abdominal pain has subsided. The patient is now on clear liquids. OBJECTIVE: VITAL: Temperature 98.0, pulse 63, respiratory rate 16, SpO2 of 96% on room air, blood pressure 120/72. GENERAL: Elderly male, in no obvious distress. Afebrile, anicteric, acyanotic. HEENT: Normocephalic, atraumatic. Pupils are equal and reacting to light. Oral mucosa is moist. CARDIOVASCULAR: Regular rhythm and rate with normal heart sounds. Systolic murmur with metallic click noted. RESPIRATORY: Good air entry bilateral with no obvious crackle or rhonchi. GI: Abdomen is full, soft, nontender, nondistended with normal bowel sound. EXTREMITIES: Grossly normal-looking, atraumatic, with no edema or erythema. NEUROLOGIC: Conscious, alert and oriented x3 with appropriate mental status. DIAGNOSTIC DATA: CBC today showed WBC count of 10.1, hemoglobin of 8.1, MCV of 85.4, platelet of 166. BMP showed sodium 151, potassium 4.3, chloride 118, CO2 of 30, BUN 67, creatinine 1.68, glucose 126, calcium 7.8. Urine electrolytes showed urine sodium of 446 and creatinine of 62.58. ASSESSMENT AND PLAN: 1. Acute kidney injury: Due to hemodynamic factors related to volume depletion and poor oral intake as well as gastrointestinal bleeding. Creatinine is improving. The patient's JAIDA inhibitors are currently off. We will continue IV fluid therapy. 2. Hyponatremia: Due to dehydration with free water deficit. We will change IV fluid from normal saline to half-normal saline to provide additional free water. The patient is now on clear liquid. We will continue to monitor electrolytes and address as appropriate. 3. Chronic kidney disease stage 3: Baseline creatinine is noted to be between 1.2 and 1.4. 4. Acute blood loss anemia due to upper gastrointestinal bleeding. Defer to primary attending for H and H monitoring and as needed blood transfusion. 5. Acute upper gastrointestinal bleeding: Addressed by Gastrointestinal. 6. Hypertension: Blood pressure is acceptable. We will continue to hold antihypertensives while continuing with crystalloid. 7. History of nephrolithiasis. The patient can restart potassium citrate. Job ID: [id number]
[2018-08-31 13:29] LABS: #Lymphocytes 1.1 thou/uL (1.20-3.40); #Monocytes 0.5 thou/uL (0.11-0.59); %Basophils 0.2 % (0.0-1.0); %Eosinophils 0.3 % (0.0-10.0); %Lymphocytes 12.9 % (21.0-51.0); %Monocytes 5.5 % (0.0-10.0); %Neutrophils 81.1 % (42.0-75.0); Hemoglobin 8.1 g/dL (14.0-18.0); Mean Corpuscular HGB CONC 31.6 g/dL (32.0-36.0); Mean Corpuscular Hemoglobin 27.1 pg (27.0-31.0); Mean Corpuscular Volume 85.9 fL (78.0-98.0); Mean Platelet Volume 8.3 fL (7.4-10.4); Platelet Count 171 thou/uL (130-400); Red Blood Cell (RBC) Count 2.97 mill/uL (4.70-6.10); White Blood Cell (WBC) Count 8.6 thou/uL (4.8-10.8)
[2018-08-31 13:34] LABS: INR-International Normal Ratio 3.8; Prothrombin Time 37.3 SEC (12.0-14.7)
[2018-08-31 18:42] LABS: INR-International Normal Ratio 3.6; Prothrombin Time 35.6 SEC (12.0-14.7)
--- NOTE | 2018-08-31 19:08 | PRG ---
DATE OF SERVICE: 08/31/2018 SUBJECTIVE: Mr. Walton is tolerating liquids. He has no further epigastric pain. He has had no vomiting or diarrhea today. Dr. Souza has seen him and wonders if his elevated INR is in fact true which he is having this repeated. PHYSICAL EXAMINATION: VITAL SIGNS: Temperature is 98.2, pulse 72, blood pressure is 115/67. ABDOMEN: Soft and nontender with no rebound or guarding. LUNGS: Clear. HEART: Regular rate, rhythm. LABS: White count of 8.6; hemoglobin 8.1, stable from 8.1 this morning was 11.4 yesterday, platelet count 171. INR is 3.8 today, was 1.8 on 08/29/2018. BUN and creatinine are 67 and 1.68, down from 81 and 2.09. Sodium is 151. ASSESSMENT: 1. Catarina-Reeves tear, active bleeding, treated endoscopically yesterday. 2. Severe volume depletion from GI bleed and nausea and vomiting, repleted yesterday. 3. Sodium 151, now on half-normal saline. RECOMMENDATIONS: 1. Advance to full liquid diet and then as tolerated. 2. With regard to the INR, Dr. Souza is going to hold off on giving FFP, which I think is reasonable and recheck his INR. 3. We will continue to hold Coumadin. 4. Monitor H and H with hemoglobin in the morning. 5. If no bleeding, could change to p.o. Protonix in the morning. Job ID: [id number]
[2018-08-31] MEDS: Sodium Chloride 0.45% 1,000 ML IV SCH (20:31)
[2018-08-31] MEDS ORDERED: Rosuvastatin 20 MG TAB PO SCH (21:00)
[2018-09-01] MEDS: Sodium Chloride 0.45% 1,000 ML IV SCH ×2 (00:25→09:40)
[2018-09-01 01:47] LABS: Prothrombin Time 22.7 SEC (12.0-14.7)
[2018-09-01 05:24] LABS: #Lymphocytes 1.4 thou/uL (1.20-3.40); #Monocytes 0.5 thou/uL (0.11-0.59); #Neutrophils 3.4 thou/uL (1.40-6.50); %Basophils 0.1 % (0.0-1.0); %Eosinophils 0.8 % (0.0-10.0); %Lymphocytes 26.6 % (21.0-51.0); %Monocytes 9.5 % (0.0-10.0); Hemoglobin 6.6 g/dL (14.0-18.0); Mean Corpuscular HGB CONC 32.4 g/dL (32.0-36.0); Mean Corpuscular Hemoglobin 27.8 pg (27.0-31.0); Mean Corpuscular Volume 85.7 fL (78.0-98.0); Mean Platelet Volume 8.2 fL (7.4-10.4); Platelet Count 136 thou/uL (130-400); RBC Distribution Width 15.8 % (11.5-14.5); Red Blood Cell (RBC) Count 2.37 mill/uL (4.70-6.10); White Blood Cell (WBC) Count 5.3 thou/uL (4.8-10.8)
[2018-09-01 05:36] LABS: Anion Gap 8 mmol/L (10-20); BUN (Urea Nitrogen) 32 mg/dL (8.4-25.7); Calc. Creatinine Clearance 52 mL/min (70-130); Carbon Dioxide 27 mmol/L (23-31); Chloride 115 mmol/L (98-107); Estimated GFR-MDRD 55; Glucose 92 mg/dL (83-110); Potassium 3.9 mmol/L (3.5-5.1); Sodium 146 mmol/L (136-145)
[2018-09-01 08:19] LABS: Iron 20 ug/dL (65-175); Iron Binding Capacity, Total 311 mcg/dL (261-462)
[2018-09-01] MEDS ORDERED: Tamsulosin HCl 0.4 MG CAP PO SCH (09:00)
[2018-09-01] MEDS ORDERED: Finasteride 5 MG TAB PO SCH (09:00)
[2018-09-01] MEDS: Pantoprazole 40 MG VIAL IVP SCH ×2 (09:41→21:16)
--- NOTE | 2018-09-01 11:06 | PDOC.PN ---
- Subjective Encounter Start Date: 09/01/18 Encounter Start Time: 11:04 Subjective: no chest pain, sob - Objective Resuscitation Status - Order Detail: 08/29/18 20:37 Resuscitation Status Routine Co-Sign Provider: Resuscitation Status: FULL: Full Resuscitation MAR Reviewed: Yes Vital Signs & Weight: Vital Signs (12 hours) Temp Pulse Pulse Resp BP BP Pulse Ox 09/01/18 07:45 98.2 F 60 14 111/66 93 L 09/01/18 00:19 98.3 F 63 17 103/66 95 Weight Weight 177 lb 9.6 oz I&O: 08/31/18 09/01/18 09/02/18 06:59 06:59 06:59 Intake Total 650 2670 Output Total 250 400 Balance 400 2270 Result Diagrams: 09/01/18 05:07 09/01/18 05:07 Phys Exam - Physical Examination Neck: no JVD Respiratory: clear to auscultation bilateral Cardiovascular: RRR, no significant murmur Gastrointestinal: soft, no distention Musculoskeletal: no edema Dx/Plan (1) Upper GI hemorrhage Code(s): K92.2 - GASTROINTESTINAL HEMORRHAGE, UNSPECIFIED Status: Acute (2) Catarina-Reeves tear Code(s): K22.6 - GASTRO-ESOPHAGEAL LACERATION-HEMORRHAGE SYNDROME Status: Acute (3) Anticoagulant long-term use Code(s): Z79.01 - 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
--- NOTE | 2018-09-01 12:00 | PDOC.CTH ---
Cardiology Progress Note - Subjective The pt seen and examined. No overnight events. No cardiac complaints. - Objective Vital Signs Temp Pulse Pulse Resp BP BP Pulse Ox 09/01/18 07:45 98.2 F 60 14 111/66 93 L 09/01/18 00:19 98.3 F 63 17 103/66 95 Weight 177 lb 9.6 oz 08/31/18 09/01/18 09/02/18 06:59 06:59 06:59 Intake Total 650 2670 Output Total 250 400 Balance 400 2270 - Physical Examination General/Neuro: alert & oriented x3 Neck: no JVD present Lungs: CTA Heart: RRR Abdomen: soft Extremities: other: (No edema) - Labs Result Diagrams: 09/01/18 05:07 09/01/18 05:07 - Assessment/Plan 1. GI bleed 2/2 Catarina-Reeves tear and s/p EGD on 08/30/2018 - tolerate Ice chips; managed by GI 2. CAD - stable; will resume BBlocker and ASA as tolerate and when ok by GI 3. S/p mechanical AVR in 1997 - holding Coumadin 2/2 GI bleed; will resume once ok by GI 4. HTN - stable without any BP med for now 5. Hx of PM placement 6. ANIVAL on CKD - improving 7. Anemia 2/2 GI bleed - Hgb today was 6.6. Still bleeding. INR today was 2.0 which was >3 yesterday. 8. Dehydration: vol. replacement. 9. Hypernatremia. Should correct with free water. MAR reviewed Pt. seen and eval. by me. I agree with the a/p by the BAGGAGE CLERK. The Hgb. continues to decr. Continue to hold anticoagulation. I agree with the FFP and transfusions. Cardiac status is stable. The AV will be okay in the short term without OAC. Must continue to hold. gjm Review of Systems - Review of Systems Constitutional: reports: no symptoms reported EENTM: reports: no symptoms reported Respiratory: reports: no symptoms reported Cardiac (ROS): reports: no symptoms reported ABD/GI: reports: no symptoms reported : reports: no symptoms reported Musculoskeletal: reports: no symptoms reported Skin: reports: no symptoms reported
--- NOTE | 2018-09-01 15:11 | PRG ---
DATE OF SERVICE: 09/01/2018 SUBJECTIVE: No new problem. Feeling a lot better. No further nausea or hematemesis. Denied chest pain or palpitations. OBJECTIVE: VITAL SIGNS: Temperature 98.7, pulse 64, respiratory rate 16, blood pressure 105/64. SpO2 is 93 on room air. GENERAL: Healthy-looking elderly male, in no obvious distress. Afebrile. Anicteric. Acyanotic. HEENT: Normocephalic, atraumatic. Pupils are equal and reacting to light. Oral mucosa is moist. RESPIRATORY: Good air entry bilaterally with no obvious crackle or rhonchi or use of accessory muscles. CARDIOVASCULAR: Regular rhythm and rate with normal heart sounds. Systolic murmur with metallic click noted. GI: Abdomen is full, soft, nontender, nondistended with normal bowel sounds. EXTREMITIES: Grossly normal looking, atraumatic with no edema of the legs. Mild edema of the left hand noted. NEUROLOGIC: Conscious, alert, and oriented x3 with appropriate mental status. DIAGNOSTIC DATA: CBC showed WBC count of 5.3, hemoglobin of 6.6, platelet of 136. Of note, hemoglobin was 11.1 yesterday and 13.8 on admission. BMP showed sodium 146, potassium 3.9, chloride 115, CO2 of 27, BUN 32, creatinine 1.26. Of note, BUN was 81 and creatinine 2.09 on August 30. Iron chemistry showed serum iron of 20, TIBC of 311/iron saturation of 6, and ferritin of 23.63. ASSESSMENT AND PLAN: 1. Acute kidney injury: Due to hemodynamic factors related to hypovolemia from GI blood losses. Creatinine is improving with blood and crystalloid. We will continue IV fluids and monitor renal function. 2. Hyponatremia: Due to free water deficit. The patient is not tolerating clear liquid. Expected to improve with increased water intake. 3. Iron-deficiency anemia: Due to GI losses. The patient will need further endoscopic evaluation. He has not had a colonoscopy. We will replete iron store with Ferrlecit 250 mg q.12 x2 doses. 4. Hypertension: Blood pressure control is acceptable at this time. We will continue to hold antihypertensives. 5. History of nephrolithiasis: No acute issues. We can restart potassium citrate. 6. Get renal function panel in the morning. Job ID: [id number]
--- NOTE | 2018-09-01 16:15 | PRG ---
DATE OF SERVICE: 09/01/2018 SUBJECTIVE: On followup, Mr. Walton states he has had no vomiting. He has no abdominal pain. He is tolerating full liquids. He has had no bowel movement since Thursday. He has had no diarrhea. LABORATORY DATA: Today, white count 5.3, hemoglobin went to 6.6 from 8.1, platelet count is 136. INR was 2, it was 3.6 yesterday and he got plasma for that. Chemistries are notable for a BUN down to 32 and creatinine of 1.26, down from 81 and 2.09 on the , and 67 and 1.68 on the . ASSESSMENT: No signs of ongoing bleeding from the gastrointestinal tract with dropping BUN. This would be consistent with him clearing the blood that had been lost previously. He has had no vomiting or melena, which goes against further active bleeding. I suspect his hemoglobin drop is either equilibration with being rehydrated with him being over-anticoagulated. If he has continued hemoglobin drop without any overt evidence of gastrointestinal bleeding, he should have body imaging to rule out retroperitoneal hematoma. PLAN: 1. Agree with transfusion as needed. 2. Agree with plasma for reversal of anticoagulation. 3. We would continue IV Protonix q.12 hours. Diet can be full liquid until tomorrow. If there are no signs of GI bleeding, advance diet tomorrow. Job ID: [id number]
[2018-09-01 20:24] LABS: #Eosinphils 0.1 thou/uL (0.0-0.7); #Lymphocytes 1.6 thou/uL (1.20-3.40); #Monocytes 0.6 thou/uL (0.11-0.59); #Neutrophils 3.8 thou/uL (1.40-6.50); %Basophils 0.5 % (0.0-1.0); %Eosinophils 1.5 % (0.0-10.0); %Monocytes 9.9 % (0.0-10.0); %Neutrophils 62.1 % (42.0-75.0); Hemoglobin 8.3 g/dL (14.0-18.0); Mean Corpuscular HGB CONC 32.3 g/dL (32.0-36.0); Mean Corpuscular Hemoglobin 27.4 pg (27.0-31.0); Mean Corpuscular Volume 84.9 fL (78.0-98.0); Mean Platelet Volume 8.3 fL (7.4-10.4); Platelet Count 152 thou/uL (130-400); RBC Distribution Width 15.8 % (11.5-14.5); Red Blood Cell (RBC) Count 3.04 mill/uL (4.70-6.10); White Blood Cell (WBC) Count 6.1 thou/uL (4.8-10.8)
[2018-09-01 20:29] LABS: INR-International Normal Ratio 1.4
[2018-09-01] MEDS ORDERED: CRESTOR 20 MG PO SCH (21:00)
[2018-09-01] MEDS ORDERED: PROSCAR 5 MG PO SCH (21:00)
[2018-09-01] MEDS ORDERED: FLOMAX 0.4 MG PO SCH (21:00)
[2018-09-01] MEDS: CRESTOR 20 MG PO SCH (21:23)
[2018-09-02] MEDS: Sodium Chloride 0.45% 1,000 ML IV SCH ×2 (05:32→05:34)
[2018-09-02 08:14] LABS: #Eosinphils 0.1 thou/uL (0.0-0.7); #Lymphocytes 1.3 thou/uL (1.20-3.40); #Monocytes 0.4 thou/uL (0.11-0.59); %Basophils 0.1 % (0.0-1.0); %Lymphocytes 27.2 % (21.0-51.0); %Neutrophils 62.6 % (42.0-75.0); Hemoglobin 8.2 g/dL (14.0-18.0); Mean Corpuscular HGB CONC 32.7 g/dL (32.0-36.0); Mean Corpuscular Hemoglobin 27.1 pg (27.0-31.0); Mean Corpuscular Volume 82.8 fL (78.0-98.0); Platelet Count 159 thou/uL (130-400); RBC Distribution Width 15.9 % (11.5-14.5); Red Blood Cell (RBC) Count 3.03 mill/uL (4.70-6.10); White Blood Cell (WBC) Count 4.7 thou/uL (4.8-10.8)
[2018-09-02 08:17] LABS: INR-International Normal Ratio 1.4; Prothrombin Time 17.1 SEC (12.0-14.7)
[2018-09-02 08:32] LABS: Albumin 3.4 g/dL (3.4-4.8); Anion Gap 8 mmol/L (10-20); BUN (Urea Nitrogen) 20 mg/dL (8.4-25.7); Calc. Creatinine Clearance 51 mL/min (70-130); Calcium 8.3 mg/dL (7.8-10.44); Carbon Dioxide 27 mmol/L (23-31); Chloride 112 mmol/L (98-107); Estimated GFR-MDRD 53; Glucose 94 mg/dL (83-110); Phosphorus 2.3 mg/dL (2.3-4.7); Sodium 143 mmol/L (136-145)
[2018-09-02] MEDS ORDERED: FLOMAX 0.4 MG PO SCH ×3 (09:00→21:00)
[2018-09-02] MEDS ORDERED: PROSCAR 5 MG PO SCH ×3 (09:00→21:00)
[2018-09-02] MEDS: Pantoprazole 40 MG VIAL IVP SCH (09:06)
--- NOTE | 2018-09-02 09:34 | PDOC.PN ---
- Subjective Encounter Start Date: 09/02/18 Encounter Start Time: 09:31 Subjective: no nausea, melena - Objective Resuscitation Status - Order Detail: 08/29/18 20:37 Resuscitation Status Routine Co-Sign Provider: Resuscitation Status: FULL: Full Resuscitation MAR Reviewed: Yes Vital Signs & Weight: Vital Signs (12 hours) Temp Pulse Resp BP Pulse Ox 09/02/18 07:30 98.9 F 71 16 138/69 91 L 09/02/18 04:00 98.1 F 66 20 128/69 95 09/02/18 00:00 98.3 F 61 20 112/67 95 Weight Weight 177 lb 9.6 oz I&O: 09/01/18 09/02/18 09/03/18 06:59 06:59 06:59 Intake Total 2670 2790 Output Total 400 1475 Balance 2270 1315 Result Diagrams: 09/02/18 07:41 09/02/18 07:41 Phys Exam - Physical Examination Neck: no JVD Respiratory: clear to auscultation bilateral Cardiovascular: RRR crisp valve sounds Gastrointestinal: soft, positive bowel sounds Musculoskeletal: no edema Dx/Plan (1) Upper GI hemorrhage Code(s): K92.2 - GASTROINTESTINAL HEMORRHAGE, UNSPECIFIED Status: Acute (2) Catarina-Reeves tear Code(s): K22.6 - GASTRO-ESOPHAGEAL LACERATION-HEMORRHAGE SYNDROME Status: Acute (3) Anticoagulant long-term use Code(s): Z79.01 - ROUTER SETTER (CURRENT) USE OF ANTICOAGULANTS Status: Acute (4) 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
--- NOTE | 2018-09-02 09:43 | PDOC.CTH ---
Cardiology Progress Note - Subjective The pt seen and examined. No overnight events. No cardiac complaints. - Objective Vital Signs Temp Pulse Resp BP Pulse Ox 09/02/18 07:30 98.9 F 71 16 138/69 91 L 09/02/18 04:00 98.1 F 66 20 128/69 95 09/02/18 00:00 98.3 F 61 20 112/67 95 Weight 177 lb 9.6 oz 09/01/18 09/02/18 09/03/18 06:59 06:59 06:59 Intake Total 2670 2790 Output Total 400 1475 Balance 2270 1315 - Physical Examination General/Neuro: alert & oriented x3 Neck: no JVD present Lungs: CTA Heart: RRR Abdomen: soft Extremities: other: (No edema) - Labs Result Diagrams: 09/02/18 07:41 09/02/18 07:41 - Assessment/Plan 1. GI bleed 2/2 Catarina-Reeves tear and s/p EGD on 08/30/2018 - Hgb > 8 this AM after 1 unit PRBC tx yesterday; tolerate full liquid diet; managed by GI 2. CAD - stable; will resume BBlocker and ASA as tolerate and when ok by GI 3. S/p mechanical AVR in 1997 - holding Coumadin 2/2 GI bleed; will resume once ok by GI 4. HTN - stable without any BP med for now 5. Hx of PM placement 6. ANIVAL on CKD - improving 7. Anemia 2/2 GI bleed - improving 8. Dehydration: vol. replacement. 9. Hypernatremia. Should correct with free water. MAR reviewed Pt. seen and eval . by me. I agree with the A/P by the SENIOR JAVA ARCHITECT. Chest clear. RRR. Cardiac status is stable. Review of Systems - Review of Systems Constitutional: reports: no symptoms reported EENTM: reports: no symptoms reported Respiratory: reports: no symptoms reported Cardiac (ROS): reports: no symptoms reported ABD/GI: reports: no symptoms reported : reports: no symptoms reported Musculoskeletal: reports: no symptoms reported
[2018-09-02] MEDS ORDERED: Sodium Chloride 0.45% 1,000 ML IV SCH (15:48)
--- NOTE | 2018-09-02 16:57 | PRG ---
DATE OF SERVICE: 09/02/2018 SUBJECTIVE: An 83-year-old with acute kidney injury. No new problem. Oral intake is improving. Denied nausea, vomiting, hematemesis, or diarrhea. OBJECTIVE: VITAL SIGNS: Temperature 98.3, pulse 63, respiratory rate 16, SpO2 of 93% on room air, blood pressure is 95/57. GENERAL: Elderly male, in no distress. Afebrile. Anicteric. HEENT: Normocephalic, atraumatic. Pupils are equal and reacting to light. CARDIOVASCULAR: Regular rhythm and rate with normal heart sounds 1 and 2. Systolic murmur with metallic click noted. RESPIRATORY: Good air entry bilaterally with no crackle or rhonchi. GI: Abdomen is obese, soft, nontender, nondistended with normal bowel sounds. EXTREMITIES: Grossly normal looking atraumatic with no edema or erythema. NEUROLOGIC: Conscious and alert, oriented x3 with appropriate mental status. DIAGNOSTIC DATA: CBC showed WBC count of 4.7, hemoglobin of 8.2, MCV of 82.8, platelet of 159. Renal function panel shows sodium 143, potassium 4.0, chloride 112, CO2 of 27, BUN 20, creatinine 1.29, glucose 94, calcium 8.3, phosphorus 2.3, albumin 3.4. Coagulation panel showed PT 17.1, INR 1.4. ASSESSMENT AND PLAN: 1. Acute kidney injury: Prerenal in etiology due to hemodynamic factors related to hypovolemia from gastrointestinal blood loss as well as volume depletion. Creatinine has improved to 1.29. The patient however had soft blood pressures in 90s. We will start LR at 100 mL/h. 2. Hypernatremia: Due to free water deficit. Corrected with free water. 3. Iron deficiency anemia: Due to gastrointestinal blood loss. Treated with IV iron. Anticipate discharge with oral iron supplementation. 4. Hypotension: Blood pressure is currently is soft. We will continue to hold antihypertensives. 5. History of nephrolithiasis: No acute issues: Continue potassium citrate. Monitor vitals and renal function. Job ID: [id number]
[2018-09-02] MEDS: Lactated Ringer's 1,000 ML IV SCH (17:40)
--- NOTE | 2018-09-02 18:04 | PRG ---
DATE OF SERVICE: SUBJECTIVE: Mr. Walton is starting to eat. He has had no bleeding. He has no nausea or vomiting. He denies abdominal pain. OBJECTIVE: VITAL SIGNS: Temperature is 98, pulse 63, blood pressure 95/57 to 121/65. ABDOMEN: Soft, slightly protuberant, but nontender. LABORATORY DATA: White count 4.7, hemoglobin 8.2, platelet count 159. INR 1.4. BUN and creatinine are 20 and 1.29. ASSESSMENT: 1. Large hiatal hernia. 2. Recurrent nausea and vomiting. I was concerned clinically that he may have a volvulus, but none was seen at the time of endoscopy. It seems his PPI was stopped recently due to concern for possible effect on renal function. Presently with hydration, his renal function is fine. 3. History of aortic valve replacement in 1997, for which he was on Coumadin. 4. GI bleed from Catarina-Reeves tear on presentation, get a unit of blood and several units of FFP. Elevated INR when he came in, likely related to taking his Coumadin, but not eating very well over the past several days. No signs of GI bleeding now. RECOMMENDATIONS: I think we can get him back to full anticoagulation in 4 to 5 days. Would continue PPIs daily. He has lansoprazole at home. I think taking that b.i.d. for two weeks and then once daily, after that would be fine. If he goes home tomorrow, he can follow up with us in the office in 2 to 3 weeks. I would be happy to see him back. Job ID: [id number]
[2018-09-02] MEDS: CRESTOR 20 MG PO SCH (20:33)
[2018-09-03] MEDS: Lactated Ringer's 1,000 ML IV SCH ×2 (04:21→12:46)
[2018-09-03 08:13] LABS: #Eosinphils 0.2 thou/uL (0.0-0.7); #Monocytes 0.5 thou/uL (0.11-0.59); %Basophils 0.1 % (0.0-1.0); %Eosinophils 2.8 % (0.0-10.0); %Lymphocytes 17.7 % (21.0-51.0); %Monocytes 9.2 % (0.0-10.0); %Neutrophils 70.2 % (42.0-75.0); Mean Corpuscular HGB CONC 33.4 g/dL (32.0-36.0); Mean Corpuscular Hemoglobin 27.6 pg (27.0-31.0); Mean Corpuscular Volume 82.5 fL (78.0-98.0); Mean Platelet Volume 8.4 fL (7.4-10.4); Platelet Count 191 thou/uL (130-400); Red Blood Cell (RBC) Count 3.25 mill/uL (4.70-6.10); White Blood Cell (WBC) Count 5.7 thou/uL (4.8-10.8)
[2018-09-03 08:20] LABS: INR-International Normal Ratio 1.2; Prothrombin Time 15.4 SEC (12.0-14.7)
[2018-09-03 08:32] LABS: Albumin 3.6 g/dL (3.4-4.8); Anion Gap 10 mmol/L (10-20); BUN (Urea Nitrogen) 20 mg/dL (8.4-25.7); BUN/Creatinine Ratio 14.49; Calc. Creatinine Clearance 48 mL/min (70-130); Calcium 8.7 mg/dL (7.8-10.44); Carbon Dioxide 24 mmol/L (23-31); Chloride 111 mmol/L (98-107); Estimated GFR-MDRD 49; Glucose 101 mg/dL (83-110); Phosphorus 2.4 mg/dL (2.3-4.7); Potassium 3.9 mmol/L (3.5-5.1); Sodium 141 mmol/L (136-145)
--- NOTE | 2018-09-03 11:56 | PDOC.CTH ---
Cardiology Progress Note - Subjective The pt seen and examined. No overnight events. No cardiac complaints. He had loose stool this AM without any blood. - Objective Vital Signs Temp Pulse Resp BP BP Pulse Ox 09/03/18 07:45 97.9 F 75 12 120/72 96 09/03/18 04:00 98.5 F 71 20 131/75 93 L 09/03/18 00:00 98.3 F 59 L 20 119/72 92 L Weight 177 lb 9.6 oz 09/02/18 09/03/18 09/04/18 06:59 06:59 06:59 Intake Total 2790 1920 Output Total 1475 700 Balance 1315 1220 - Physical Examination General/Neuro: alert & oriented x3 Neck: no JVD present Lungs: CTA Heart: RRR Abdomen: soft Extremities: other: - Labs Result Diagrams: 09/03/18 07:57 09/03/18 07:57 - Assessment/Plan 1. GI bleed 2/2 Catarina-Reeves tear and s/p EGD on 08/30/2018 - Hgb > 9 this AM after 1 unit PRBC tx on 09/01/2018; tolerate regular diet; managed by GI 2. CAD - stable; no BBlocker due to bradycarida; No ASA for now since resuming coumadin from 09/06/2018; if the pt tolerates Coumadin, then resume ASA. 3. S/p mechanical AVR in 1997 - Will resume Coumadin from 09/06/2018; The pt will f/u with [facility] within 5- 7days after resuming the medication for INR check 4. HTN - stable without any BP med for now 5. Hx of PM placement 6. ANIVAL on CKD - unchanged; instructed to drink more fluid 7. Anemia 2/2 GI bleed - improving 8. Dehydration: vol. replacement. 9. Hypernatremia - improved MAR reviewed * Will resume Coumadin from 09/06/2018; The pt will f/u with Coumadin Clinic within 5- 7days after resuming the medication for INR check. Review of Systems - Review of Systems Constitutional: reports: no symptoms reported EENTM: reports: no symptoms reported Respiratory: reports: no symptoms reported Cardiac (ROS): reports: no symptoms reported ABD/GI: reports: no symptoms reported : reports: no symptoms reported Musculoskeletal: reports: no symptoms reported
[2018-09-03 12:36] VITALS: BP 118/66; TEMP 97.7
--- NOTE | 2018-09-03 13:44 | PRG ---
DATE OF SERVICE: 09/03/2018 SUBJECTIVE: An 83-year-old male, being followed up for ANIVAL. Denied nausea, vomiting, or diarrhea. Oral intake is adequate. OBJECTIVE: VITAL SIGNS: Temperature 97.7, pulse 78, respiratory rate 12, SpO2 of 94 on room air, and blood pressure is 118/66. GENERAL: Healthy-looking elderly male, in no distress. Afebrile, anicteric, acyanotic. HEENT: Normocephalic and atraumatic. Oral mucosa is moist. CARDIOVASCULAR: Regular rhythm and rate with normal heart sounds 1 and 2. Systolic murmur with metallic click noted. RESPIRATORY: Good air entry bilaterally with no crackle or rhonchi. GI: Abdomen is full, soft, nontender, nondistended with normal bowel sounds. EXTREMITIES: Grossly normal looking, atraumatic, with no edema or erythema. Distal pulses are palpable. NEUROLOGIC: Conscious, alert, oriented x3 with appropriate mental status. DIAGNOSTIC DATA: CBC showed WBC count of 5.7, hemoglobin of 9.0, MCV of 82.5, platelets of 191. Renal function panel showed sodium 141, potassium 3.9, chloride 111, CO2 is 24, BUN 20, creatinine 1.38, glucose 101, calcium 8.7, phosphorus 2.4, and albumin 3.6. Review of records showed that the peak creatinine was 2.9 and the lowest was 1.26 during this hospitalization. ASSESSMENT AND PLAN: 1. Acute kidney injury superimposed on chronic kidney disease, stage 3. Creatinine has improved with IV fluid therapy, and platelet and blood transfusion. Acute kidney injury is due to volume depletion from gastrointestinal bleeding and poor oral intake as well as gastrointestinal losses. Chronic kidney disease most likely is related to nephrolithiasis and hypertension as well as old age. Baseline creatinine is unclear, but it seems to be around 1.2 to 1.4. The patient is currently off JAIDA inhibitor. 2. Hypernatremia: Due to free water deficit. Resolved. 3. Iron deficiency anemia/anemia in chronic kidney disease. Treated with IV iron as well as packed red blood cells. Anticipate discharge on oral iron supplementation. 4. Hypertension: Blood pressure is currently soft. The patient has been off antihypertensives since admission. Anticipate this should be held if the blood pressure appreciates. 5. History of nephrolithiasis: No acute issues. The patient needs to continue potassium citrate. 6. BPH: The patient sees a urologist. Continue home medications. 7. Disposition: The patient can be discharged from nephrology point of view. Followup in 1 to 2 weeks with repeat renal function panel is recommended. Job ID: [id number]
--- NOTE | 2018-09-04 15:59 | EKG ---
Test Reason : Blood Pressure : / mmHG Vent. Rate : 099 BPM Atrial Rate : 099 BPM P-R Int : 184 ms QRS Dur : 156 ms QT Int : 398 ms P-R-T Axes : 047 254 061 degrees QTc Int : 510 ms Atrial-sensed ventricular-paced rhythm Abnormal ECG Confirmed by ROBIN KRUEGER, JO ([id number]), features editor RADHA STALLINGS ([id number]) on 09/04/2018 3:59:13 PM Referred By: Confirmed By:JO KELLY MD
--- NOTE | 2018-09-05 04:07 | DIS ---
DATE OF ADMISSION: 08/30/2018 DATE OF DISCHARGE: 09/03/2018 DISCHARGE DIAGNOSES: As of the followin. Upper gastrointestinal bleed. 2. Catarina-Reeves tear. 3. Long-term anticoagulation use. 4. Status post aortic valve replacement with mechanical valve. 5. Hypertension. HOSPITAL COURSE: The patient is an 83-year-old male who initially presented to the hospital on 08/30/2018, with abdominal pain. The patient also at this time indicated that he had some bright red blood in the stool and also bright blood in his emesis. At this time, he was seen by GI and underwent an upper endoscopy. The patient's upper endoscopy indicated a large hiatal hernia with 80% in the stomach and in the chest and also Catarina-Reeves tear noted to have large clots. I recommended to continue the PPI and also to hold off on his blood thinners. The patient also was seen by Cardiology, who recommended to restart his Coumadin on Thursday. Also, his aspirin was held due to the bleed. He was given 1 unit of PRBCs and also was given FFPs to reverse him. The patient continued to have stable hemoglobin. His last hemoglobin on discharge was 9.0, previously was 8.2. The patient has chronic kidney disease and his creatinine was at baseline. He also was found to have low iron and has been started on oral iron. He also received some IV iron while he was in the hospital. The patient will follow up with GI and also with his primary care doctor. HOME MEDICATIONS: His home medications will be as of the followin. Protonix 40 mg b.i.d. 2. Iron 325 daily. 3. Colace 100 mg daily. 4. Tamsulosin 0.4 daily. 5. Proscar 5 mg daily. 6. Potassium 10 mEq daily. PHYSICAL EXAMINATION: VITAL SIGNS: At this time, temperature of 97.7, 78, 12, 94% on room air, and blood pressure 118/66. GENERAL: He is awake, alert, and oriented x3. He does not appear in distress. CV: S1, S2 present. No murmurs, rubs, gallops. ABDOMEN: Soft and nontender. Bowel sounds are present x2. EXTREMITIES: No edema. I did discuss significantly with the patient and wrote in discharge instructions that he will hold all of his blood pressure medications. Also, we will monitor his blood pressure at home. If his blood pressure starts trending up, I recommend starting the amlodipine versus lisinopril given his recent ANIVAL. The patient also has been advised to follow up with his primary care doctor next week. Also, he has been given a lab slip to check his hemoglobin and his kidney function. The patient also was asked to restart his Coumadin on Thursday, and follow up with the Coumadin Clinic, which Cardiology will manage, and also recommended to the patient that if his symptoms worsen or if he gets dizziness or lightheadedness, he needs to come into the ER for further evaluation. Job ID: [id number]
== END 2018-09-03 15:15 | disposition home or self-care (01) | DRG 369 ==
LOC: ERS 16:15 → SURG A 21:21 → OBSVTOIN 08-30 12:29
PROVIDERS: ADMIT Family Medicine; ATTEND Family Medicine
PROC: 0W3P8ZZ Control Bleeding in Gastrointestinal Tract, Via Natural or Artificial Opening Endoscopic (ICD-10-PCS; principal; 2018-08-30)
PROC: 0DC68ZZ Extirpation of Matter from Stomach, Via Natural or Artificial Opening Endoscopic (ICD-10-PCS; 2018-08-30)
PROC: 30233L1 Transfusion of Nonautologous Fresh Plasma into Peripheral Vein, Percutaneous Approach (ICD-10-PCS; 2018-08-31)
DX: K22.6 Gastro-esophageal laceration-hemorrhage syndrome (principal); N17.9 Acute kidney failure, unspecified; E87.3 Alkalosis; E87.0 Hyperosmolality and hypernatremia; D62 Acute posthemorrhagic anemia; E78.5 Hyperlipidemia, unspecified; I25.10 Atherosclerotic heart disease of native coronary artery without angina pectoris; K44.9 Diaphragmatic hernia without obstruction or gangrene; I12.9 Hypertensive chronic kidney disease with stage 1 through stage 4 chronic kidney disease, or unspecified chronic kidney disease; D64.9 Anemia, unspecified; N18.3 Chronic kidney disease, stage 3 (moderate); N20.0 Calculus of kidney; E86.0 Dehydration; D63.1 Anemia in chronic kidney disease; D50.9 Iron deficiency anemia, unspecified; I95.9 Hypotension, unspecified; Z87.891 Personal history of nicotine dependence; Z79.82 Long term (current) use of aspirin; Z95.0 Presence of cardiac pacemaker; Z79.01 Long term (current) use of anticoagulants; Z79.899 Other long term (current) drug therapy
CPT/HCPCS: 36415; 36430; 74176; 76705; 76770; 80048; 80053; 80069; 81003; 81015; 82274; 82570; 82728; 83540; 83550; 83690; 84156; 84300; 85025; 85610; 85730; 86850; 86900; 86901; 93005; 93306; 96361; 96374; C9113; J0171; J2001; J2270; J2550; J2704; J3490; P9016; P9059; Q0162

== ENCOUNTER 2019-05-03 09:06 | Emergency (ER) | payer MEDICARE, BC ==
--- NOTE | 2019-05-03 09:56 | RAD ---
XR Shoulder Rt 3 View STANDARD HISTORY: Fall, right shoulder pain FINDINGS: No fracture or dislocation is identified. There are degenerative changes in the acromioclavicular rush nt.
[2019-05-03] MEDS ORDERED: HYDROcodone/Acetaminophen 10/325 mg Tablet ONE (10:20)
--- NOTE | 2019-05-03 10:42 | CT ---
CT BRAIN WITHOUT CONTRAST: HISTORY: Trauma, headache FINDINGS: Comparison is made with exam of 08/17/2009. No evidence of acute infarct, hemorrhage, midline shift or abnormal extra-axial fluid collections is seen. The ventricular size is appropriate and the basilar cisterns are patent. The bony calvarium is intact. The visualized paranasal sinuses and mastoid air cells are well aerated. IMPRESSION: No CT evidence of acute intracranial process.
== END 2019-05-03 11:04 | disposition home or self-care (01) ==
LOC: ERS 09:06
DX: M25.511 Pain in right shoulder (principal); Z87.891 Personal history of nicotine dependence; W19.XXXA Unspecified fall, initial encounter
CPT/HCPCS: 70450

== ENCOUNTER 2019-06-24 09:37 | Outpatient (CLI) | payer MEDICARE, BC ==
--- NOTE | 2019-06-24 12:15 | MRI ---
MRI RIGHT SHOULDER PERFORMED WITHOUT CONTRAST ENHANCEMENT: Date: 06/24/2019 HISTORY: Right shoulder pain. FINDINGS: There is marked arthrosis of the AC joint. There is a full thickness supraspinatus tendon tear. There is slight differential retraction of the fibers. The bursal-sided fibers are retracted by approximat destiny 1.7 cm and the articular-sided fibers by approximately 2.2 cm. The infraspinatus tendon is intact . Motion artifact degrades the detail, but there is evidence for a partial tear of the superior fibers of the subscapularis tendon. The biceps tendon does maintain normal position within the bicipital sheila ove. There are some edema changes associated with the subscapularis muscle related to strain and evid ence for some element of delamination with some fluid density extending towards the musculotendinous junction of the superior fibers. Motion artifact degrades detail, but there is a chronic-appearing tear of the superior labrum noted. This is directly posterior to the biceps anchor. There are some mild arthritic changes of the glenohu meral joint space. There is very mild atrophy of the superior fibers of the infraspinatus muscle. IMPRESSION: 1. Full thickness supraspinatus tendon tear as described above. There is also partial tear of the gamble perior fibers of subscapularis tendon, more difficult to assessed due to motion artifact. The biceps tendon does maintain a normal position within the bicipital groove. 2. 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 3. Marked arthrosis of the AC joint. There are also some moderate edema changes of the distal end of the clavicle and lesser changes of the acromion associated with this. Changes of the distal clavicle probably indicate an insufficiency type fracture. POS: GREER
== END 2019-06-24 09:38 | disposition home or self-care (01) ==
LOC: MRI 09:37
PROVIDERS: ATTEND Orthopaedic Surgery
DX: S46.011A Strain of muscle(s) and tendon(s) of the rotator cuff of right shoulder, initial encounter (principal); S43.431D Superior glenoid labrum lesion of right shoulder, subsequent encounter; M19.011 Primary osteoarthritis, right shoulder; R60.0 Localized edema

== ENCOUNTER 2019-07-29 07:55 | Inpatient (IN) | payer MEDICARE, BC ==
[2019-07-29 08:30] LABS: #Eosinphils 0.2 thou/uL (0.0-0.7); #Lymphocytes 1.3 thou/uL (1.20-3.40); #Monocytes 0.4 thou/uL (0.11-0.59); #Neutrophils 3.4 thou/uL (1.40-6.50); %Basophils 0.9 % (0.0-1.0); %Eosinophils 4.3 % (0.0-10.0); %Monocytes 7.8 % (0.0-10.0); Hemoglobin 17.8 g/dL (14.0-18.0); Mean Corpuscular HGB CONC 33.2 g/dL (32.0-36.0); Mean Corpuscular Volume 93.3 fL (78.0-98.0); Mean Platelet Volume 8.1 fL (7.4-10.4); Platelet Count 168 thou/uL (130-400); RBC Distribution Width 14.1 % (11.5-14.5); Red Blood Cell (RBC) Count 5.73 mill/uL (4.70-6.10); White Blood Cell (WBC) Count 5.5 thou/uL (4.8-10.8)
--- NOTE | 2019-07-29 08:39 | RAD ---
SINGLE VIEW CHEST: Date: 07/29/2019 COMPARISON: 01/17/2010. HISTORY: Chest pain. FINDINGS: Single view of the chest shows normal sized cardiomediastinal silhouette. The patient is status post sternotomy. A pacemaker is seen with tis leads in the right atrium and ventricle. There is a large hi atal hernia. There is no evidence of consolidation, mass, or pleural effusion. IMPRESSION: Large hiatal hernia. POS: [facility]
[2019-07-29 08:56] LABS: ALT (SGPT) 34 U/L (8-55); AST (SGOT) 32 U/L (5-34); Albumin 3.9 g/dL (3.4-4.8); Alkaline Phosphatase 123 U/L (40-110); Anion Gap 10 mmol/L (10-20); BUN (Urea Nitrogen) 24 mg/dL (8.4-25.7); Bilirubin, Total 1.2 mg/dL (0.2-1.2); CK (CPK) 107 U/L (30-200); Calc. Creatinine Clearance 0 mL/min (70-130); Calcium 9.5 mg/dL (7.8-10.44); Carbon Dioxide 28 mmol/L (23-31); Chloride 107 mmol/L (98-107); Estimated GFR-MDRD 51; Globulin 2.6 g/dL (2.4-3.5); Glucose 153 mg/dL (83-110); Lipase 47 U/L (8-78); Potassium 4.6 mmol/L (3.5-5.1); Protein, Total 6.5 g/dL (5.8-8.1); Sodium 140 mmol/L (136-145)
[2019-07-29] MEDS ORDERED: Aspirin Chewable 81 MG TAB ONE (09:17)
[2019-07-29] MEDS ORDERED: Morphine 2 MG/ML SYRINGE ONE (09:17)
[2019-07-29 09:19] LABS: CKMB 3.8 ng/mL (0-6.6)
[2019-07-29 09:25] LABS: PTT 34.3 SEC (22.9-36.1); Prothrombin Time 22.9 SEC (12.0-14.7)
[2019-07-29 10:50] VITALS: BMI 26.1
[2019-07-29] MEDS ORDERED: Ondansetron ODT 4 MG TAB SL PRN (11:04)
[2019-07-29] MEDS ORDERED: Ondansetron PF 4 MG/2 ML Vial IVP PRN ×2 (11:04→15:23)
[2019-07-29 12:30] LABS: Troponin I 0.076 ng/mL (< 0.028)
[2019-07-29 15:20] LABS: Troponin I 0.373 ng/mL (< 0.028)
[2019-07-29] MEDS ORDERED: Senokot S 8.6-50 MG TAB PO PRN (15:23)
[2019-07-29] MEDS ORDERED: HYDROcodone/Acetaminophen 5/325 mg Tablet PO PRN (15:35)
[2019-07-29] MEDS ORDERED: Morphine 2 MG/ML SYRINGE SLOW IVP PRN (15:46)
[2019-07-29] MEDS ORDERED: Warfarin Sodium 2.5 MG TAB PO SCH (17:00)
[2019-07-29 18:02] LABS: Hemoglobin 16.4 g/dL (14.0-18.0); Platelet Count 169 thou/uL (130-400)
[2019-07-29 19:12] LABS: CKMB 16.8 ng/mL (0-6.6)
[2019-07-29] MEDS ORDERED: Nitroglycerin 2% Ointment 1 INCH/1 GM Packet TOP SCH (20:00)
[2019-07-29] MEDS: Enoxaparin Sodium 80 MG/0.8 ML SYRINGE SC SCH (20:16)
[2019-07-29] MEDS: CRESTOR 20 MG PO SCH (20:18)
[2019-07-29] MEDS: CARVEDILOL 6.25 MG TAB PO SCH (20:19)
--- NOTE | 2019-07-29 20:53 | CON ---
DATE OF CONSULTATION: 07/29/2019 REASON FOR CONSULTATION: Chest pain. PRIMARY SURGICAL GARMENT INSPECTOR: Ting Souza MD. HISTORY OF PRESENT ILLNESS: Mr. Walton is a pleasant 84-year-old white gentleman, who comes to the hospital for chest pain. He had a stress test yesterday for preoperative evaluation for shoulder surgery. He had been having some chest discomfort recently. Stress test was read by Dr. Souza earlier today after he has been admitted with apical scar with mata-infarct ischemia. Mr. Walton came into the ER as he had worsening chest pain after he was pulling weeds at home in his backyard. He was admitted for rule out. However, because of ongoing chest pain, most likely he was going to need a heart catheterization. His troponins have since become positive. On my evaluation, Mr. Walton is not having any more chest pain. He is doing well. PAST MEDICAL HISTORY: 1. History of aortic stenosis status post mechanical aortic valve replacement. 2. Tachy-maximiliano syndrome status post pacemaker placement. 3. Hyperlipidemia. 4. Hypertension. 5. BPH. 6. Iron-deficiency anemia. 7. GERD. PAST SURGICAL HISTORY: 1. Mechanical aortic valve placement. 2. Pacemaker placement. 3. Lithotripsy x3. 4. Hernia bleeding stopped. SOCIAL HISTORY: Social alcohol use. No drugs. Former tobacco use, quit in 1964. OUTPATIENT MEDICATIONS: 1. Coumadin 5 mg for 5 days and 2.5 mg for 2 days. 2. Crestor 10 mg at bedtime. 3. Carvedilol 6.25 b.i.d. 4. Amlodipine 5 mg daily. 5. Flomax 0.4 daily. 6. Iron. 7. Prevacid. 8. Uric acid. 9. Finasteride. 10. Lasix 20 mg p.o. daily. 11. Fish oil. 12. Tramadol. ALLERGIES: NO KNOWN DRUG ALLERGIES. FAMILY HISTORY: Noncontributory. REVIEW OF SYSTEMS: A 12-point review of systems was done and was all negative unless stated in the history of present illness. PHYSICAL EXAMINATION: VITAL SIGNS: Temperature 98.3, pulse 87, respiratory rate 16, saturating 95% on room air, blood pressure 130/67. GENERAL: Awake, alert, oriented x3, in no distress. HEENT: Normocephalic and atraumatic. NECK: Supple. LUNGS: Clear. CARDIOVASCULAR: Very crisp sounding aortic valve. There is a very soft grade 2/6 systolic murmur. ABDOMEN: Soft. Positive bowel sounds. EXTREMITIES: No edema. SKIN: Warm and dry. LABORATORY DATA: Laboratory work was reviewed. CBC is unremarkable. Coags were unremarkable. INR was 2.0. Chemistry with troponin of 0.05, then 0.07, and 0.37, latest one was 1.88. Creatinine 1.3. BNP was 113. Chest x-ray was reviewed. ASSESSMENT: 1. [id number] myocardial infarction. 2. Mechanical aortic valve. 3. Chronic anticoagulation with Coumadin. PLAN: 1. We will hold Coumadin. We will wait for the INR to come down. We will cover with full anticoagulation with Lovenox in the meantime. We will plan on doing heart catheterization on Thursday with Dr. Souza. We spoke at length with risks and benefits of the procedure. Risks included, but not limited to stroke, [place], , bleeding, need for blood transfusion, limb loss, organ loss, renal dysfunction from contrast use, allergic reactions. He understands, verbalized understanding of this and agrees to proceed. Would prefer bare metal stenting if needed secondary to long-term anticoagulation need. 2. Further recommendations per results of coronary angiogram. 3. Echocardiogram pending. Thank you for letting us participate in the care of your patient, we will follow. Job ID: [id number]
[2019-07-29] MEDS ORDERED: Carvedilol 6.25 MG TAB PO SCH (21:00)
[2019-07-29] MEDS ORDERED: Rosuvastatin 20 MG TAB PO SCH (21:00)
--- NOTE | 2019-07-29 22:22 | HP ---
PRESENTING COMPLAINT: Chest pain. 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 As per the patient today, after he had breakfast, he had sharp chest pain, 8/10 with no radiation, with no aggravating or relieving factors. Denies any shortness of breath, palpitation, sweating. Denies nausea or vomiting. Has mild chronic diarrhea, which is persistent. Denies constipation. Denies urinary complaints. Complains of swelling of the feet, but as per the patient, he is being managed by a international sales manager and being taking diuretics and that is helping. The patient is still complaining of mild lower sternal area chest pain. Initial workup in the emergency room showed mildly positive troponin. ED physician spoke with on-call traffic and transport planner, who recommended further admission and evaluation. The patient had a stress test performed yesterday. The patient does not know the results of that test. SYSTEMIC REVIEW: As mentioned above in the HPI. All other systems are negative. PAST MEDICAL HISTORY: As mentioned above. PAST SURGICAL HISTORY: History of lithotripsy, history of aortic valve replacement, history of esophageal dilatation, history of pacemaker placement, history of endoscopy. SOCIAL HISTORY: The patient denies smoking. Drinks alcohol socially. Denies any drug abuse. FAMILY HISTORY: Coronary artery disease, liver cirrhosis, and kidney disease. PHYSICAL EXAMINATION: VITAL SIGNS: Blood pressure 130/67, temperature 97.6, pulse 72, respirations 18. GENERAL: The patient is lying in bed comfortably, in no distress. HEENT: Conjunctivae normal. Oral mucosa moist. NECK: Supple. No JVD. No lymphadenopathy. CHEST: Normal vesicular breathing. No rhonchi. No wheezing. Heart sounds normal. No murmur. No gallop. No rub. ABDOMEN: Soft, benign. No tenderness or visceromegaly. EXTREMITIES: Decreased range of motion on right shoulder. Bilateral mild edema of feet, positive. No rash no cyanosis. LABORATORY DATA: CMP unremarkable except creatinine 1.33. LFTs and normal. Lipase 47. Troponin 0.050, 0.076. ProBNP 113. INR 2. CBC unremarkable. Chest x-ray, large hiatal hernia. IMPRESSION: 1. Chest pain with mildly positive troponin. The patient is being admitted for cardiology evaluation. The patient performed a stress test outpatient yesterday with Dr. Souza. The patient does not know the results. The ED physician spoke with Dr. Roman, who will evaluate the patient. The patient is still having mild chest pain. We will continue p.r.n. nitroglycerin, but as per the patient, it is not helping. Continue serial troponins. 2. History of aortic valve replacement, on Coumadin. Currently INR is 2. We will wait for Cardiology for if the patient needs to continue Coumadin or any further intervention for possible cardiac cath evaluation. 3. Hypertension. Continue to monitor blood pressure. Continue blood pressure medication. 4. Hyperlipidemia. Continue statin. 5. History of hiatal hernia. The patient is seen by Surgery in the past, recommended no surgical intervention in the presence of multiple comorbidities. 6. Chronic kidney disease stage 3, currently looks stable. 7. History of transient ischemic attack. Continue supportive therapy. 8. History of gastrointestinal bleed secondary to Catarina-Reeves tear. 9. Possible chronic venous insufficiency. Continue diuretics and continue KARINA hose. The patient is recommended to keep bilateral lower extremity elevation and use elastic stocking. 10. Deep venous thrombosis and gastrointestinal prophylaxis. Plan discussed with the patient and nursing staff in detail. Job ID: [id number]
[2019-07-30] MEDS: Nitroglycerin 2% Ointment 1 INCH/1 GM Packet TOP SCH ×5 (00:13→23:30)
[2019-07-30 05:37] LABS: #Eosinphils 0.1 thou/uL (0.0-0.7); #Lymphocytes 1.3 thou/uL (1.20-3.40); #Monocytes 0.6 thou/uL (0.11-0.59); #Neutrophils 4.6 thou/uL (1.40-6.50); %Basophils 0.5 % (0.0-1.0); %Eosinophils 1.4 % (0.0-10.0); %Lymphocytes 19.7 % (21.0-51.0); %Monocytes 9.3 % (0.0-10.0); Hemoglobin 15.8 g/dL (14.0-18.0); Mean Corpuscular HGB CONC 33.6 g/dL (32.0-36.0); Mean Corpuscular Hemoglobin 31.2 pg (27.0-31.0); Mean Corpuscular Volume 93.1 fL (78.0-98.0); Mean Platelet Volume 8.2 fL (7.4-10.4); Platelet Count 155 thou/uL (130-400); RBC Distribution Width 14.1 % (11.5-14.5); Red Blood Cell (RBC) Count 5.05 mill/uL (4.70-6.10); White Blood Cell (WBC) Count 6.7 thou/uL (4.8-10.8)
[2019-07-30 05:40] LABS: INR-International Normal Ratio 2.5; Prothrombin Time 26.7 SEC (12.0-14.7)
[2019-07-30 05:55] LABS: Anion Gap 10 mmol/L (10-20); BUN (Urea Nitrogen) 24 mg/dL (8.4-25.7); Calc. Creatinine Clearance 49 mL/min (70-130); Calcium 9.1 mg/dL (7.8-10.44); Carbon Dioxide 30 mmol/L (23-31); Chloride 108 mmol/L (98-107); Estimated GFR-MDRD 52; Glucose 100 mg/dL (83-110); Potassium 4.5 mmol/L (3.5-5.1); Sodium 143 mmol/L (136-145)
[2019-07-30] MEDS: Enoxaparin Sodium 80 MG/0.8 ML SYRINGE SC SCH ×2 (08:44→20:46)
[2019-07-30] MEDS: Fish Oil 1,000 MG CAP PO SCH (08:45)
[2019-07-30] MEDS: Ferrous Sulfate 325 MG TAB PO SCH (08:46)
[2019-07-30] MEDS: FUROSEMIDE 20 MG TAB PO SCH (08:47)
[2019-07-30] MEDS: CARVEDILOL 6.25 MG TAB PO SCH ×2 (08:47→20:47)
[2019-07-30] MEDS: AMLODIPINE 5 MG TAB PO SCH (08:48)
[2019-07-30] MEDS ORDERED: FINASTERIDE 5 MG TAB PO SCH (09:00)
[2019-07-30] MEDS ORDERED: Finasteride 5 MG TAB PO SCH (09:00)
[2019-07-30] MEDS ORDERED: Amlodipine 5 MG TAB PO SCH (09:00)
[2019-07-30] MEDS ORDERED: Furosemide 20 MG TAB PO SCH (09:00)
[2019-07-30] MEDS ORDERED: Tamsulosin HCl 0.4 MG CAP PO SCH (09:00)
[2019-07-30] MEDS ORDERED: Carvedilol 6.25 MG TAB PO SCH (09:00)
[2019-07-30] MEDS ORDERED: TAMSULOSIN 0.4 MG CAP PO SCH (09:00)
[2019-07-30 11:37] LABS: Hemoglobin 16.2 g/dL (14.0-18.0); Platelet Count 150 thou/uL (130-400)
[2019-07-30] MEDS: LANSOPRAZOLE 30 MG PO SCH (16:26)
--- NOTE | 2019-07-30 16:52 | PDOC.CPN ---
- Subjective Date: 07/30/19 Time: 16:50 Interval history: No more chest pain since last night after a dose of morphine and nitro patch. Feeling better. - Review of Systems General: denies: fever/chills, weight/appetite/sleep changes, night sweats, fatigue Respiratory: denies: cough, congestion, shortness of breath, exercise intolerance Cardiovascular: denies: chest pain, palpitation, edema, paroxysmal nocturnal dyspnea, orthopnea Gastrointestinal: denies: nausea, vomiting, diarrhea, constipation, abd pain, GI bleeding Musculoskeletal: denies: pain, tenderness, stiffness, swelling, arthritis/ arthralgias Neurological: denies: numbness, syncope, seizure, weakness - Objective Allergies/Adverse Reactions: Allergies Allergy/AdvReac Type Severity Reaction Status Date / Time No Known Allergies Allergy Verified 08/29/18 21:49 Visit Medications: Current Medications Acetaminophen (Tylenol) 650 mg PO Q4H PRN PRN Reason: Headache/Fever/Mild Pain (1-3) Hydrocodone Bitart/Acetaminophen ([place] 5/325) 1 tab PO Q4H PRN PRN Reason: Moderate Pain (4-6) Enoxaparin Sodium (Lovenox) 80 mg SC 0900,2100 [facility] Last Admin: 07/30/19 08:44 Dose: 80 mg Ferrous Sulfate (Feosol) 325 mg PO DAILY [facility] Last Admin: 07/30/19 08:46 Dose: Not Given Fish Oil (Fish Oil) 2,000 mg PO DAILY [facility] Last Admin: 07/30/19 08:45 Dose: Not Given Morphine Sulfate (Morphine) 2 mg SLOW IVP Q4H PRN PRN Reason: Chest Pain Last Admin: 07/30/19 00:14 Dose: 2 mg Nitroglycerin (Nitro-Bid 2% Ointment) 1 inch TOP Q6HR [facility] Last Admin: 07/30/19 16:25 Dose: 1 inch Ondansetron HCl (Zofran) 4 mg IVP Q6H PRN PRN Reason: Nausea/Vomiting Amlodipine 5 Mg Tab 1 each PO DAILY [facility] Last Admin: 07/30/19 08:48 Dose: 1 each Crestor ( Rosuvastatin) 20 Mg Tab 1 each PO HS [facility] Last Admin: 07/29/19 20:18 Dose: 1 each Carvedilol 6.25 Mg (Tab) 1 each PO QAM [facility] Last Admin: 07/30/19 08:47 Dose: 1 each Carvedilol 6.25 Mg (Tab) 2 each PO HS [facility] Last Admin: 07/29/19 20:19 Dose: 2 each Furosemide 20 Mg Tab 1 each PO DAILY [facility] Last Admin: 07/30/19 08:47 Dose: [address] 30 (Mg Cap) 1 each PO DAILY [facility] Last Admin: 07/30/19 16:26 Dose: 1 each Tamsulosin 0.4 Mg (Cap) 0 each PO HS [facility] Finasteride 5 Mg Tab 0 each PO HS [facility] Senna/Docusate Sodium (Senokot S) 2 tab PO BIDPRN PRN PRN Reason: Constipation Vital Signs & Weight: Vital Signs Temp Pulse Resp BP Pulse Ox 07/30/19 15:15 98.5 F 62 17 128/65 94 L 07/30/19 11:58 97.7 F 69 16 127/65 96 07/30/19 07:50 97.7 F 61 18 130/67 94 L Weight 177 lb 1.6 oz - Physical Exam General: alert & oriented x3 HEENT: mucus membranes moist Neck: supple neck Cardiac: regular rate and rhythm, other (Aortic valve is crisp.) Lungs: clear to auscultation Neuro: grossly intact Abdomen: active bowel sounds Extremities: no edema Skin: clear Musculoskeletal: no pain - Labs Result Diagrams: 07/30/19 11:23 07/30/19 11:23 Troponin/CKMB CK-MB (CK-2) 16.8 ng/mL (0-6.6) H* 07/29/19 17:54 Troponin I 1.880 ng/mL (< 0.028) H* 07/29/19 17:54 - Telemetry Sinus rhythms and dysrhythmias: sinus rhythm - Assessment/Plan Assessment/Plan: 1. NSTEMI 2. Mechanical AVR 3. Chornic anticoagulation with Coumadin PLAN: - Continue plan for [facility] thursday. - INR needs to be less than 1.8
[2019-07-30] MEDS ORDERED: Warfarin Sodium 5 MG TAB PO SCH (17:00)
--- NOTE | 2019-07-30 17:31 | PDOC.HOSPP ---
- Subjective Encounter Date: 07/30/19 Encounter Time: 08:00 Subjective: Pt seen for followup re: NSTEMI. No chest pain today morning. - Objective Vital Signs & Weight: Vital Signs (12 hours) Temp Pulse Resp BP Pulse Ox 07/30/19 15:15 98.5 F 62 17 128/65 94 L 07/30/19 11:58 97.7 F 69 16 127/65 96 07/30/19 07:50 97.7 F 61 18 130/67 94 L Weight Weight 177 lb 1.6 oz I&O: 07/29/19 07/30/19 07/31/19 06:59 06:59 07:59 Intake Total 820 Output Total 725 Balance 95 Result Diagrams: 07/30/19 11:23 07/30/19 11:23 Additional Labs: Labs and MARs reviewed by me EKG Reviewed by me: Yes (Tele: NSR) Hospitalist ROS - Review of Systems Cardiovascular: denies: chest pain, palpitations, orthopnea, paroxysmal noc. dyspnea, edema, light headedness Gastrointestinal: denies: nausea, vomiting, abdominal pain, diarrhea, constipation, melena, hematochezia - Medication Medications: Active Medications Generic Name Dose Route Start Last Admin Trade Name Freq PRN Reason Stop Dose Admin Enoxaparin Sodium 80 mg 07/29/19 21:00 07/30/19 08:44 Lovenox SC 80 mg 0900,2100 [facility] Administration Ferrous Sulfate 325 mg 07/30/19 09:00 07/30/19 08:46 Feosol PO Not Given DAILY [facility] Fish Oil 2,000 mg 07/30/19 09:00 07/30/19 08:45 Fish Oil PO Not Given DAILY [facility] Morphine Sulfate 2 mg 07/29/19 15:46 07/30/19 00:14 Morphine SLOW IVP 2 mg Q4H PRN Administration Chest Pain Nitroglycerin 1 inch 07/29/19 23:59 07/30/19 16:25 Nitro-Bid 2% Ointment TOP 1 inch Q6HR [facility] Administration Amlodipine 5 Mg Tab 1 each 07/30/19 09:00 07/30/19 08:48 PO 1 each DAILY [facility] Administration Crestor ( 1 each 07/29/19 21:00 07/29/19 20:18 Rosuvastatin) 20 Mg PO 1 each Tab HS [facility] Administration Carvedilol 6.25 Mg 1 each 07/30/19 09:00 07/30/19 08:47 Tab PO 1 each QAM [facility] Administration Carvedilol 6.25 Mg 2 each 07/29/19 21:00 07/29/19 20:19 Tab PO 2 each HS [facility] Administration Furosemide 20 Mg Tab 1 each 07/30/19 09:00 07/30/19 08:47 PO 1 each DAILY [facility] Administration Lansoprazole Dr 30 1 each 07/30/19 09:00 07/30/19 16:26 Mg Cap PO 1 each DAILY [facility] Administration - Exam General Appearance: awake alert Eye: anicteric sclera ENT: moist mucosa Neck: supple Heart: RRR Respiratory: CTAB Gastrointestinal: soft, non-tender Extremities: no cyanosis Skin: no rashes Psychiatric: normal affect, normal behavior Hosp A/P (1) NSTEMI (non-ST elevated myocardial infarction) Code(s): I21.4 - NON-ST ELEVATION (NSTEMI) MYOCARDIAL INFARCTION Status: Acute (2) HTN (hypertension) Code(s): I10 - ESSENTIAL (PRIMARY) HYPERTENSION Status: Chronic Qualifiers: Hypertension type: essential hypertension Qualified Code(s): I10 - Essential (primary) hypertension (3) H/O mechanical aortic valve replacement Code(s): Z95.2 - PRESENCE OF PROSTHETIC HEART VALVE Status: Chronic (4) Anticoagulant long-term use Code(s): Z79.01 - CNC OPERATOR (CURRENT) USE OF ANTICOAGULANTS Status: Chronic - Plan Awaiting cath on Thursday. Warfarin on hold. Target INR less than 1.8 HTN controlled.
[2019-07-30] MEDS: TAMSULOSIN 0.4 MG CAP PO SCH (20:46)
[2019-07-30] MEDS: CRESTOR 20 MG PO SCH (20:47)
[2019-07-30] MEDS: FINASTERIDE 5 MG TAB PO SCH (20:48)
[2019-07-31 05:16] LABS: Prothrombin Time 22.7 SEC (12.0-14.7)
[2019-07-31] MEDS: Nitroglycerin 2% Ointment 1 INCH/1 GM Packet TOP SCH ×3 (05:56→18:24)
[2019-07-31] MEDS: Enoxaparin Sodium 80 MG/0.8 ML SYRINGE SC SCH ×2 (07:54→21:07)
[2019-07-31] MEDS: AMLODIPINE 5 MG TAB PO SCH (07:55)
[2019-07-31] MEDS: FUROSEMIDE 20 MG TAB PO SCH (07:55)
[2019-07-31] MEDS: CARVEDILOL 6.25 MG TAB PO SCH ×2 (07:57→21:10)
[2019-07-31] MEDS: Fish Oil 1,000 MG CAP PO SCH (07:58)
[2019-07-31] MEDS: Ferrous Sulfate 325 MG TAB PO SCH (07:58)
[2019-07-31] MEDS ORDERED: Aspirin 81 mg Enteric Coated Tablet PO SCH (10:00)
--- NOTE | 2019-07-31 13:56 | PDOC.HOSPP ---
- Subjective Encounter Date: 07/31/19 Encounter Time: 08:00 Subjective: Pt seen for followup re: NSTEMI. No chest pain since two nights ago. - Objective Vital Signs & Weight: Vital Signs (12 hours) Temp Pulse Resp BP Pulse Ox 07/31/19 11:32 98.1 F 62 20 128/65 94 L 07/31/19 07:50 92 L 07/31/19 07:35 98.2 F 62 20 141/70 H 92 L 07/31/19 05:58 89 L 07/31/19 04:50 98.5 F 60 16 139/65 93 L Weight Weight 176 lb 6.4 oz I&O: 07/30/19 07/31/19 08/01/19 05:59 06:59 06:59 Intake Total Output Total Balance Result Diagrams: 07/30/19 11:23 07/30/19 11:23 Additional Labs: Labs and MARs reviewed by me EKG Reviewed by me: Yes (Tele: V-paced) Hospitalist ROS - Review of Systems Cardiovascular: denies: chest pain, palpitations, orthopnea, paroxysmal noc. dyspnea, edema, light headedness Musculoskeletal: denies: neck pain, shoulder pain, arm pain, back pain, hand pain, leg pain, foot pain - Medication Medications: Active Medications Generic Name Dose Route Start Last Admin Trade Name Freq PRN Reason Stop Dose Admin Enoxaparin Sodium 80 mg 07/29/19 21:00 07/31/19 07:54 Lovenox SC 80 mg 0900,2100 [facility] Administration Ferrous Sulfate 325 mg 07/30/19 09:00 07/31/19 07:58 Feosol PO Not Given DAILY [facility] Fish Oil 2,000 mg 07/30/19 09:00 07/31/19 07:58 Fish Oil PO Not Given DAILY [facility] Morphine Sulfate 2 mg 07/29/19 15:46 07/30/19 00:14 Morphine SLOW IVP 2 mg Q4H PRN Administration Chest Pain Nitroglycerin 1 inch 07/29/19 23:59 07/31/19 13:09 Nitro-Bid 2% Ointment TOP 1 inch Q6HR [facility] Administration Amlodipine 5 Mg Tab 1 each 07/30/19 09:00 07/31/19 07:55 PO 1 each DAILY [facility] Administration Crestor ( 1 each 07/29/19 21:00 07/30/19 20:47 Rosuvastatin) 20 Mg PO 1 each Tab HS [facility] Administration Carvedilol 6.25 Mg 1 each 07/30/19 09:00 07/31/19 07:57 Tab PO 1 each QAM [facility] Administration Carvedilol 6.25 Mg 2 each 07/29/19 21:00 07/30/19 20:47 Tab PO 2 each HS [facility] Administration Furosemide 20 Mg Tab 1 each 07/30/19 09:00 07/31/19 07:55 PO 1 each DAILY [facility] Administration Lansoprazole Dr 30 1 each 07/30/19 09:00 07/30/19 16:26 Mg Cap PO 1 each DAILY [facility] Administration Tamsulosin 0.4 Mg 0 each 07/30/19 21:00 07/30/19 20:46 Cap PO 1 each HS [facility] Administration Finasteride 5 Mg Tab 0 each 07/30/19 21:00 07/30/19 20:48 PO 1 each HS [facility] Administration - Exam General Appearance: NAD ENT: no oropharyngeal lesions, moist mucosa Neck: supple Heart: RRR, no rubs Respiratory: CTAB, no wheezes, no rales, no ronchi Gastrointestinal: soft, non-tender Extremities: no edema Skin: no lesions, no rashes Musculoskeletal: no muscle wasting Psychiatric: normal affect, normal behavior Hosp A/P (1) NSTEMI (non-ST elevated myocardial infarction) Code(s): I21.4 - NON-ST ELEVATION (NSTEMI) MYOCARDIAL INFARCTION Status: Acute (2) HTN (hypertension) Code(s): I10 - ESSENTIAL (PRIMARY) HYPERTENSION Status: Chronic Qualifiers: Hypertension type: essential hypertension Qualified Code(s): I10 - Essential (primary) hypertension (3) H/O mechanical aortic valve replacement Code(s): Z95.2 - PRESENCE OF PROSTHETIC HEART VALVE Status: Chronic (4) Anticoagulant long-term use Code(s): Z79.01 - SKILLED NURSING (CURRENT) USE OF ANTICOAGULANTS Status: Chronic - Plan Awaiting cath tomorrow. continue to hold warfarin, INR 2.0 today. Target INR less than 1.8 HTN controlled.
[2019-07-31] MEDS: LANSOPRAZOLE 30 MG PO SCH (16:27)
--- NOTE | 2019-07-31 17:55 | PDOC.CPN ---
- Subjective Date: 07/31/19 Time: 17:54 Interval history: Doing well. No chest pain. - Review of Systems General: denies: fever/chills, weight/appetite/sleep changes, night sweats, fatigue Respiratory: denies: cough, congestion, shortness of breath, exercise intolerance Cardiovascular: denies: chest pain, palpitation, edema, paroxysmal nocturnal dyspnea, orthopnea Gastrointestinal: denies: nausea, vomiting, diarrhea, constipation, abd pain, GI bleeding Musculoskeletal: denies: pain, tenderness, stiffness, swelling, arthritis/ arthralgias Neurological: denies: numbness, syncope, seizure, weakness - Objective Allergies/Adverse Reactions: Allergies Allergy/AdvReac Type Severity Reaction Status Date / Time No Known Allergies Allergy Verified 08/29/18 21:49 Visit Medications: Current Medications Acetaminophen (Tylenol) 650 mg PO Q4H PRN PRN Reason: Headache/Fever/Mild Pain (1-3) Hydrocodone Bitart/Acetaminophen ([place] 5/325) 1 tab PO Q4H PRN PRN Reason: Moderate Pain (4-6) Aspirin (Ecotrin) 81 mg PO DAILY [facility] Enoxaparin Sodium (Lovenox) 80 mg SC 0900,2100 [facility] Last Admin: 07/31/19 07:54 Dose: 80 mg Ferrous Sulfate (Feosol) 325 mg PO DAILY [facility] Last Admin: 07/31/19 07:58 Dose: Not Given Fish Oil (Fish Oil) 2,000 mg PO DAILY [facility] Last Admin: 07/31/19 07:58 Dose: Not Given Morphine Sulfate (Morphine) 2 mg SLOW IVP Q4H PRN PRN Reason: Chest Pain Last Admin: 07/30/19 00:14 Dose: 2 mg Nitroglycerin (Nitro-Bid 2% Ointment) 1 inch TOP Q6HR [facility] Last Admin: 07/31/19 13:09 Dose: 1 inch Ondansetron HCl (Zofran) 4 mg IVP Q6H PRN PRN Reason: Nausea/Vomiting Amlodipine 5 Mg Tab 1 each PO DAILY [facility] Last Admin: 07/31/19 07:55 Dose: 1 each Crestor ( Rosuvastatin) 20 Mg Tab 1 each PO HS [facility] Last Admin: 07/30/19 20:47 Dose: 1 each Carvedilol 6.25 Mg (Tab) 1 each PO QAM [facility] Last Admin: 07/31/19 07:57 Dose: 1 each Carvedilol 6.25 Mg (Tab) 2 each PO HS [facility] Last Admin: 07/30/19 20:47 Dose: 2 each Furosemide 20 Mg Tab 1 each PO DAILY [facility] Last Admin: 07/31/19 07:55 Dose: [address] 30 (Mg Cap) 1 each PO DAILY [facility] Last Admin: 07/31/19 16:27 Dose: 1 each Tamsulosin 0.4 Mg (Cap) 0 each PO HS [facility] Last Admin: 07/30/19 20:46 Dose: 1 each Finasteride 5 Mg Tab 0 each PO HS [facility] Last Admin: 07/30/19 20:48 Dose: 1 each Senna/Docusate Sodium (Senokot S) 2 tab PO BIDPRN PRN PRN Reason: Constipation Vital Signs & Weight: Vital Signs Temp Pulse Resp BP Pulse Ox 07/31/19 14:57 98 F 60 20 120/59 L 94 L 07/31/19 11:32 98.1 F 62 20 128/65 94 L 07/31/19 07:50 92 L 07/31/19 07:35 98.2 F 62 20 141/70 H 92 L 07/31/19 05:58 89 L Weight 176 lb 6.4 oz - Physical Exam General: alert & oriented x3 HEENT: mucus membranes moist Neck: supple neck Cardiac: regular rate and rhythm, other Lungs: clear to auscultation Neuro: grossly intact Abdomen: active bowel sounds Extremities: no edema Skin: clear Musculoskeletal: normal range of motion - Labs Result Diagrams: 07/30/19 11:23 07/30/19 11:23 Troponin/CKMB CK-MB (CK-2) 16.8 ng/mL (0-6.6) H* 07/29/19 17:54 Troponin I 1.880 ng/mL (< 0.028) H* 07/29/19 17:54 - Telemetry Sinus rhythms and dysrhythmias: sinus rhythm - Assessment/Plan Assessment/Plan: 1. NSTEMI 2. Mechanical AVR 3. Chornic anticoagulation with Coumadin PLAN: - Continue plan for [facility] tomorrow with Dr. Souza. - INR needs to be less than 1.8 today at 2.0, should be lower tomorrow .
[2019-07-31] MEDS ORDERED: Communication Order-Pharmacy FS SCH ×2 (18:00→22:45)
[2019-07-31] MEDS: CRESTOR 20 MG PO SCH (21:07)
[2019-07-31] MEDS: TAMSULOSIN 0.4 MG CAP PO SCH (21:08)
[2019-07-31] MEDS: FINASTERIDE 5 MG TAB PO SCH (21:09)
[2019-07-31] MEDS: Acetaminophen 325 MG TAB PO PRN (21:14)
[2019-08-01] MEDS: Nitroglycerin 2% Ointment 1 INCH/1 GM Packet TOP SCH ×2 (00:03→06:11)
[2019-08-01 04:46] LABS: INR-International Normal Ratio 1.3; Prothrombin Time 16.5 SEC (12.0-14.7)
[2019-08-01 05:01] LABS: Cardiac Risk 2.2 (Less than 4.5)
[2019-08-01] MEDS ORDERED: Sodium Chloride 0.9% 1,000 ML IV SCH (06:00)
[2019-08-01] MEDS: AMLODIPINE 5 MG TAB PO SCH (06:08)
[2019-08-01] MEDS: CARVEDILOL 6.25 MG TAB PO SCH (06:09)
[2019-08-01] MEDS: Acetaminophen 325 MG TAB PO PRN (06:10)
[2019-08-01] MEDS ORDERED: Heparin 10,000 UNITS/1 ML VIAL ONE (07:49)
[2019-08-01] MEDS ORDERED: Nitroglycerin 100MG/250ML BOT 0 ML ONE (07:49)
[2019-08-01] MEDS ORDERED: Lidocaine 1% (PF) 30 ML VIAL ONE (07:49)
[2019-08-01] MEDS ORDERED: Verapamil 5 MG/2 ML VIAL ONE (07:49)
[2019-08-01] MEDS ORDERED: Midazolam HCl 2 mg/2 ml Vial ONE (08:46)
[2019-08-01] MEDS: Fish Oil 1,000 MG CAP PO SCH (09:00)
[2019-08-01] MEDS: Ferrous Sulfate 325 MG TAB PO SCH (09:00)
[2019-08-01] MEDS ORDERED: Aspirin 81 mg Enteric Coated Tablet PO SCH (09:00)
--- NOTE | 2019-08-01 09:18 | PDOC.CPN ---
- Subjective Date: 08/01/19 Time: 09:00 - Review of Systems General: reports: fever/chills Respiratory: reports: cough, congestion, shortness of breath Cardiovascular: reports: chest pain, edema Gastrointestinal: reports: nausea, vomiting Musculoskeletal: reports: swelling Neurological: reports: weakness - Objective Allergies/Adverse Reactions: Allergies Allergy/AdvReac Type Severity Reaction Status Date / Time No Known Allergies Allergy Verified 08/29/18 21:49 Visit Medications: Current Medications Acetaminophen (Tylenol) 650 mg PO Q4H PRN PRN Reason: Headache/Fever/Mild Pain (1-3) Last Admin: 08/01/19 06:10 Dose: 650 mg Hydrocodone Bitart/Acetaminophen ([place] 5/325) 1 tab PO Q4H PRN PRN Reason: Moderate Pain (4-6) Aspirin (Ecotrin) 81 mg PO DAILY [facility] Last Admin: 08/01/19 06:07 Dose: 81 mg Ferrous Sulfate (Feosol) 325 mg PO DAILY [facility] Last Admin: 07/31/19 07:58 Dose: Not Given Fish Oil (Fish Oil) 2,000 mg PO DAILY [facility] Last Admin: 07/31/19 07:58 Dose: Not Given Sodium Chloride (Normal Saline 0.9%) 1,000 mls @ 100 mls/hr IV .Q10H [facility] Last Admin: 08/01/19 06:12 Dose: 1,000 mls Miscellaneous Information (Communication Order-Pharmacy) 0 each FS ONE [facility] Stop: 08/01/19 18:01 Miscellaneous Information (Communication Order-Pharmacy) 0 each FS ONE [facility] Stop: 08/01/19 22:46 Morphine Sulfate (Morphine) 2 mg SLOW IVP Q4H PRN PRN Reason: Chest Pain Last Admin: 07/30/19 00:14 Dose: 2 mg Nitroglycerin (Nitro-Bid 2% Ointment) 1 inch TOP Q6HR [facility] Last Admin: 08/01/19 06:11 Dose: 1 inch Ondansetron HCl (Zofran) 4 mg IVP Q6H PRN PRN Reason: Nausea/Vomiting Amlodipine 5 Mg Tab 1 each PO DAILY [facility] Last Admin: 08/01/19 06:08 Dose: 1 each Crestor ( Rosuvastatin) 20 Mg Tab 1 each PO HS [facility] Last Admin: 07/31/19 21:07 Dose: 1 each Carvedilol 6.25 Mg (Tab) 1 each PO QAM [facility] Last Admin: 08/01/19 06:09 Dose: 1 each Carvedilol 6.25 Mg (Tab) 2 each PO HS [facility] Last Admin: 07/31/19 21:10 Dose: 2 each Furosemide 20 Mg Tab 1 each PO DAILY [facility] Last Admin: 07/31/19 07:55 Dose: [address] 30 (Mg Cap) 1 each PO DAILY [facility] Last Admin: 07/31/19 16:27 Dose: 1 each Tamsulosin 0.4 Mg (Cap) 0 each PO HS [facility] Last Admin: 07/31/19 21:08 Dose: 1 each Finasteride 5 Mg Tab 0 each PO HS [facility] Last Admin: 07/31/19 21:09 Dose: 1 each Senna/Docusate Sodium (Senokot S) 2 tab PO BIDPRN PRN PRN Reason: Constipation Warfarin Sodium (Coumadin) 5 mg PO 1700 [facility] Vital Signs & Weight: Vital Signs Temp Pulse Resp BP Pulse Ox 08/01/19 07:53 97.5 F L 64 18 130/67 93 L 08/01/19 04:15 97.9 F 72 16 120/64 94 L 07/31/19 23:25 98.3 F 61 16 142/66 H 94 L Weight 176 lb 1.6 oz - Physical Exam General: alert & oriented x3 HEENT: normocephaly Neck: no JVD/HJR Cardiac: regular rate and rhythm, no murmur Lungs: clear to auscultation Neuro: grossly intact Abdomen: unremarkable Extremities: no edema - Labs Result Diagrams: 07/30/19 11:23 07/30/19 11:23 Troponin/CKMB CK-MB (CK-2) 16.8 ng/mL (0-6.6) H* 07/29/19 17:54 Troponin I 1.880 ng/mL (< 0.028) H* 07/29/19 17:54 - Telemetry Sinus rhythms and dysrhythmias: other (pacing) - Assessment/Plan Assessment/Plan: 1. NSTEMI 2. Mechanical AVR 3. Chornic anticoagulation with Coumadin Cath this AM : no CAD except in small intermediate branch distally. 50-75%. Too small for intervention. Remaining arteries are nl. The AV is functioning normally. Resume coumadin and home meds. Okay to d/c pt. to home later today. F/U with me in 1-2 months. kenney
[2019-08-01] MEDS ORDERED: Sodium Chloride 0.9% 200 ML IV PRN (09:30)
[2019-08-01] MEDS ORDERED: Acetaminophen/Codeine 30-300mg Tablet PO PRN ×2 (09:30)
[2019-08-01] MEDS ORDERED: Nitroglycerin 0.4 MG TAB (25 Tab Bottle) SL PRN (09:30)
[2019-08-01 12:03] VITALS: TEMP 97.8
[2019-08-01] MEDS: FUROSEMIDE 20 MG TAB PO SCH (13:04)
[2019-08-01] MEDS ORDERED: Iopamidol 370 76% 100 ML VIAL ONE (13:19)
--- NOTE | 2019-08-01 15:17 | DIS ---
DATE OF ADMISSION: 07/29/2019 DATE OF DISCHARGE: 08/01/2019 PRIMARY CARE PROVIDER: Dr. Beck Recio. DISCHARGE DIAGNOSES: 1. [id number] myocardial infarction. 2. Chronic anticoagulation with Coumadin. CONDITION OF THE PATIENT ON THE DAY OF DISCHARGE: Stable. I assessed Mr. Walton on the day of discharge. He denies any chest pain or shortness of breath. Vital signs are stable. S1 and S2 are heard, regular. Lungs are clear to auscultation bilaterally. CONSULTATION DURING THIS HOSPITALIZATION: Cardiology, Dr. Roman. DISCHARGE MEDICATIONS: No change was made to his pre-admission home medications. These include; 1. Amlodipine 5 mg daily. 2. Coreg 12.5 mg at bedtime and 6.25 mg in the morning. 3. Ferrous sulfate 65 mg daily. 4. Proscar 0.5 mg daily. 5. Fish oil two capsules daily. 6. Furosemide 20 mg daily. 7. Lansoprazole 30 mg daily. 8. Potassium citrate 10 mEq two times a day. 9. Rosuvastatin 20 mg at bedtime. 10. Tamsulosin 0.4 mg daily. 11. Warfarin 5 mg daily. HOSPITAL COURSE: Mr. Walton is a pleasant 84-year-old gentleman, who was admitted to [facility] on July 29, 2019, for [id number] myocardial infarction. He was seen by Cardiology Service. His warfarin was held. He underwent cardiac catheterization on August 01, 2019. He was found to have no coronary artery disease except in small intermediate branch distally, 50% to 75%, too small for intervention. He has been cleared for discharge by Cardiology Service. He is advised to follow up with primary care provider for PT/INR testing and for management of warfarin. Many thanks for allowing me to participate in your patient's care. Please feel free to contact me with any questions or concerns. POST ACUTE CARE FOLLOWUP: With primary care provider in [address] Souza, Cardiology in 1 to 2 months. ACTIVITY: No restrictions. DIET: Heart healthy diet. DISCHARGE DESTINATION: Home. Total amount of time spent coordinating this discharge: 22 minutes. Job ID: [id number]
[2019-08-01 16:01] VITALS: BP 152/72
[2019-08-01] MEDS: LANSOPRAZOLE 30 MG PO SCH (16:06)
[2019-08-01] MEDS ORDERED: Warfarin Sodium 5 MG TAB PO SCH (17:00)
== END 2019-08-01 16:00 | disposition home or self-care (01) | DRG 282 ==
LOC: ERS 07:55 → 2SW 09:22 → OBSVTOIN 15:23
PROVIDERS: ADMIT Internal Medicine; ATTEND Internal Medicine
PROC: 4A023N7 Measurement of Cardiac Sampling and Pressure, Left Heart, Percutaneous Approach (ICD-10-PCS; principal; 2019-08-01)
PROC: B2151ZZ Fluoroscopy of Left Heart using Low Osmolar Contrast (ICD-10-PCS; 2019-08-01)
PROC: B2111ZZ Fluoroscopy of Multiple Coronary Arteries using Low Osmolar Contrast (ICD-10-PCS; 2019-08-01)
DX: I21.4 Non-ST elevation (NSTEMI) myocardial infarction (principal); I25.10 Atherosclerotic heart disease of native coronary artery without angina pectoris; I12.9 Hypertensive chronic kidney disease with stage 1 through stage 4 chronic kidney disease, or unspecified chronic kidney disease; E78.5 Hyperlipidemia, unspecified; K44.9 Diaphragmatic hernia without obstruction or gangrene; N18.3 Chronic kidney disease, stage 3 (moderate); I49.5 Sick sinus syndrome; D50.9 Iron deficiency anemia, unspecified; K21.9 Gastro-esophageal reflux disease without esophagitis; N40.0 Benign prostatic hyperplasia without lower urinary tract symptoms; Z95.0 Presence of cardiac pacemaker; Z95.2 Presence of prosthetic heart valve; Z87.891 Personal history of nicotine dependence; Z79.02 Long term (current) use of antithrombotics/antiplatelets; Z79.899 Other long term (current) drug therapy; Z79.01 Long term (current) use of anticoagulants; Z86.73 Personal history of transient ischemic attack (TIA), and cerebral infarction without residual deficits
CPT/HCPCS: 36415; 71045; 80048; 80053; 80061; 82550; 82553; 83690; 83880; 84484; 85025; 85610; 85730; 93005; 93454; 93567; 93798; 96374; 99152; C1769; J1644; J1650; J2001; J2250; J2270; Q9967

== ENCOUNTER 2021-01-25 04:48 | Inpatient (IN) | payer MEDICARE, BC ==
[2021-01-25] MEDS ORDERED: Mag-Al 1200 mg/1200 mg/30 ML UDCUP ONE (05:20)
[2021-01-25] MEDS ORDERED: Ondansetron PF 4 MG/2 ML Vial ONE (05:20)
[2021-01-25] MEDS ORDERED: Lidocaine Viscous Sol 2% 15 ml UD Cup ONE (05:20)
[2021-01-25] MEDS ORDERED: Morphine 4 MG/ML VIAL ONE (05:20)
[2021-01-25 05:58] LABS: #Lymphocytes 0.8 thou/uL (1.20-3.40); #Monocytes 0.3 thou/uL (0.11-0.59); #Neutrophils 7.7 thou/uL (1.40-6.50); %Basophils 0.2 % (0.0-1.0); %Eosinophils 0.3 % (0.0-10.0); %Lymphocytes 9.3 % (21.0-51.0); %Monocytes 3.1 % (0.0-10.0); %Neutrophils 87.1 % (42.0-75.0); Hemoglobin 18.9 g/dL (14.0-18.0); Mean Corpuscular HGB CONC 34.2 g/dL (32.0-36.0); Mean Corpuscular Hemoglobin 31.3 pg (27.0-31.0); Mean Corpuscular Volume 91.6 fL (78.0-98.0); Mean Platelet Volume 7.9 fL (7.4-10.4); Platelet Count 180 thou/uL (130-400); RBC Distribution Width 13.3 % (11.5-14.5); Red Blood Cell (RBC) Count 6.05 mill/uL (4.70-6.10); White Blood Cell (WBC) Count 8.9 thou/uL (4.8-10.8)
[2021-01-25 06:20] LABS: ALT (SGPT) 38 U/L (8-55); AST (SGOT) 32 U/L (5-34); Albumin 4.3 g/dL (3.4-4.8); Alkaline Phosphatase 124 U/L (40-110); Anion Gap 15 mmol/L (10-20); BUN (Urea Nitrogen) 26 mg/dL (8.4-25.7); Bilirubin, Total 1.6 mg/dL (0.2-1.2); Calc. Creatinine Clearance 0 mL/min (70-130); Carbon Dioxide 25 mmol/L (23-31); Chloride 105 mmol/L (98-107); Globulin 3.2 g/dL (2.4-3.5); Glucose 153 mg/dL (83-110); Lipase 38 U/L (8-78); Potassium 3.9 mmol/L (3.5-5.1); Protein, Total 7.5 g/dL (5.8-8.1); Sodium 141 mmol/L (136-145)
[2021-01-25] MEDS ORDERED: Sucralfate 1 GM/10 ML UDCUP ONE (06:34)
[2021-01-25] MEDS ORDERED: Iopamidol-370 76% 500 ML 1 ML ONE (08:59)
[2021-01-25] MEDS ORDERED: Promethazine HCl 25 MG/ML VIAL ONE (10:19)
[2021-01-25] MEDS ORDERED: Morphine 2 MG/ML VIAL ONE (10:19)
[2021-01-25 12:00] LABS: CKMB 4.3 ng/mL (0-6.6)
[2021-01-25 14:05] LABS: INR-International Normal Ratio 1.8; PTT 31.8 sec (22.9-36.1); Prothrombin Time 20.9 sec (12.0-14.7)
[2021-01-25 16:15] LABS: Troponin I 0.088 ng/mL (< 0.028)
[2021-01-25] MEDS ORDERED: Benzocaine 20% Spray 60 ML CAN ONE (17:18)
[2021-01-25] MEDS ORDERED: Ondansetron PF 4 MG/2 ML Vial IVP PRN (18:04)
[2021-01-25] MEDS ORDERED: Acetaminophen 650 MG Suppository PR PRN (18:04)
[2021-01-25] MEDS ORDERED: Metoclopramide HCl 10 MG/2 ML VIAL IVP PRN (18:14)
[2021-01-25] MEDS ORDERED: Morphine 2 MG/ML VIAL SLOW IVP PRN (18:53)
[2021-01-25] MEDS ORDERED: hydrALAZINE 20 MG/ML VIAL SLOW IVP PRN (18:53)
[2021-01-25 19:57] LABS: Troponin I 0.164 ng/mL (< 0.028)
[2021-01-25] MEDS ORDERED: Sodium Chloride 0.9% (PF) 10 ML VIAL FS PRN (20:15)
[2021-01-25] MEDS: Pantoprazole 40 MG VIAL IVP SCH (22:15)
[2021-01-25 22:54] VITALS: BMI 25.9
[2021-01-26] MEDS: Sodium Chloride 0.9% 1,000 ML IV SCH ×3 (03:35→23:33)
[2021-01-26 04:24] LABS: INR-International Normal Ratio 2.1; Prothrombin Time 23.8 sec (12.0-14.7)
[2021-01-26 04:26] LABS: #Lymphocytes 0.8 thou/uL (1.20-3.40); #Monocytes 1.3 thou/uL (0.11-0.59); #Neutrophils 17.1 thou/uL (1.40-6.50); %Basophils 0.2 % (0.0-1.0); %Eosinophils 0.1 % (0.0-10.0); %Lymphocytes 4.1 % (21.0-51.0); %Monocytes 6.8 % (0.0-10.0); %Neutrophils 88.9 % (42.0-75.0); Hemoglobin 19.6 g/dL (14.0-18.0); Mean Corpuscular HGB CONC 32.8 g/dL (32.0-36.0); Mean Corpuscular Hemoglobin 30.4 pg (27.0-31.0); Mean Corpuscular Volume 92.7 fL (78.0-98.0); Mean Platelet Volume 8.2 fL (7.4-10.4); Platelet Count 192 thou/uL (130-400); RBC Distribution Width 13.7 % (11.5-14.5); Red Blood Cell (RBC) Count 6.44 mill/uL (4.70-6.10); White Blood Cell (WBC) Count 19.2 thou/uL (4.8-10.8)
[2021-01-26 04:39] LABS: ALT (SGPT) 33 U/L (8-55); AST (SGOT) 72 U/L (5-34); Albumin 4.2 g/dL (3.4-4.8); Alkaline Phosphatase 107 U/L (40-110); Anion Gap 17 mmol/L (10-20); BUN (Urea Nitrogen) 36 mg/dL (8.4-25.7); Bilirubin, Total 1.4 mg/dL (0.2-1.2); Calc. Creatinine Clearance 29 mL/min (70-130); Calcium 10.1 mg/dL (7.8-10.44); Carbon Dioxide 25 mmol/L (23-31); Cardiac Risk 2.3 (Less than 4.5); Chloride 107 mmol/L (98-107); Cholesterol 185 mg/dl (< 200 Desired); Globulin 3.9 g/dL (2.4-3.5); Glucose 181 mg/dL (83-110); HDL Cholesterol 79 mg/dL (>60 Neg Risk); Potassium 4.7 mmol/L (3.5-5.1); Protein, Total 8.1 g/dL (5.8-8.1); Sodium 144 mmol/L (136-145)
[2021-01-26 05:41] LABS: Triglycerides 146 mg/dL (Less than 150)
[2021-01-26] MEDS: Pantoprazole 40 MG VIAL IVP SCH ×2 (10:18→21:19)
[2021-01-26] MEDS ORDERED: chlorproMAZINE HCl 50 MG/2 ML AMP SLOW IVP SCH (11:15)
[2021-01-26] MEDS ORDERED: Warfarin Sodium 5 MG TAB PO SCH (17:00)
[2021-01-26] MEDS ORDERED: Enoxaparin Sodium 80 MG/0.8 ML SYRINGE SC SCH (21:00)
[2021-01-26 21:38] LABS: SARS-CoV-2 PCR by NAA Not Detected (NotDetected)
[2021-01-27 04:37] LABS: #Lymphocytes 0.7 thou/uL (1.20-3.40); #Monocytes 1.2 thou/uL (0.11-0.59); #Neutrophils 11.1 thou/uL (1.40-6.50); %Basophils 0.1 % (0.0-1.0); %Eosinophils 0.1 % (0.0-10.0); %Lymphocytes 5.6 % (21.0-51.0); %Monocytes 9.1 % (0.0-10.0); %Neutrophils 85.2 % (42.0-75.0); Hemoglobin 18.7 g/dL (14.0-18.0); Mean Corpuscular HGB CONC 31.5 g/dL (32.0-36.0); Mean Corpuscular Hemoglobin 29.2 pg (27.0-31.0); Mean Corpuscular Volume 92.7 fL (78.0-98.0); Mean Platelet Volume 8.2 fL (7.4-10.4); Platelet Count 164 thou/uL (130-400); RBC Distribution Width 13.8 % (11.5-14.5); White Blood Cell (WBC) Count 13.1 thou/uL (4.8-10.8)
[2021-01-27 04:47] LABS: INR-International Normal Ratio 2.9; Prothrombin Time 30.8 sec (12.0-14.7)
[2021-01-27 05:02] LABS: Anion Gap 14 mmol/L (10-20); BUN (Urea Nitrogen) 45 mg/dL (8.4-25.7); Calc. Creatinine Clearance 34 mL/min (70-130); Calcium 9.3 mg/dL (7.8-10.44); Carbon Dioxide 21 mmol/L (23-31); Chloride 113 mmol/L (98-107); Glucose 141 mg/dL (83-110); Potassium 4.2 mmol/L (3.5-5.1); Sodium 144 mmol/L (136-145)
[2021-01-27] MEDS: Sodium Chloride 0.9% 1,000 ML IV SCH ×2 (08:47→21:24)
[2021-01-27] MEDS: Pantoprazole 40 MG VIAL IVP SCH ×2 (08:48→21:22)
[2021-01-27] MEDS ORDERED: Fentanyl 100 MCG/2 ML VIAL ONE ×2 (13:39→14:37)
[2021-01-27] MEDS ORDERED: PHENYLEPHRINE-NS 100 MCG/ML 10 ML SYRINGE ONE (14:41)
[2021-01-27] MEDS ORDERED: PROPOFOL 200 MG/20 ML VIAL ONE (14:41)
[2021-01-27] MEDS ORDERED: Lidocaine 1% PF 5 ML VIAL ONE (14:41)
[2021-01-27] MEDS ORDERED: ePHEDrine 50 MG/ML VIAL ONE (14:41)
[2021-01-27] MEDS ORDERED: Ondansetron PF 4 MG/2 ML Vial ONE (14:41)
[2021-01-27] MEDS ORDERED: Glycopyrrolate 0.2 MG/ML 5 ML SYRINGE ONE (14:41)
[2021-01-27] MEDS ORDERED: Rocuronium Bromide 10 MG/ML (10ML VIAL) ONE (14:41)
[2021-01-27] MEDS ORDERED: Esmolol 100 MG/10 ML VIAL ONE ×2 (14:41→15:29)
[2021-01-27] MEDS ORDERED: SUGAMMADEX SODIUM 200 MG/2 ML VIAL ONE (15:20)
[2021-01-27] MEDS ORDERED: Metoprolol Tartrate 5 MG/5 ML VIAL ONE (15:44)
[2021-01-27] MEDS ORDERED: Enoxaparin Sodium 80 MG/0.8 ML SYRINGE SC SCH (21:00)
[2021-01-28 04:47] LABS: #Lymphocytes 0.9 thou/uL (1.20-3.40); #Monocytes 0.9 thou/uL (0.11-0.59); #Neutrophils 6.4 thou/uL (1.40-6.50); %Basophils 0.2 % (0.0-1.0); %Eosinophils 0.2 % (0.0-10.0); %Lymphocytes 11.4 % (21.0-51.0); %Monocytes 10.6 % (0.0-10.0); %Neutrophils 77.7 % (42.0-75.0); Hemoglobin 17.5 g/dL (14.0-18.0); Mean Corpuscular HGB CONC 32.9 g/dL (32.0-36.0); Mean Corpuscular Hemoglobin 30.9 pg (27.0-31.0); Mean Corpuscular Volume 93.8 fL (78.0-98.0); Mean Platelet Volume 8.3 fL (7.4-10.4); Platelet Count 151 thou/uL (130-400); RBC Distribution Width 13.6 % (11.5-14.5); Red Blood Cell (RBC) Count 5.67 mill/uL (4.70-6.10); White Blood Cell (WBC) Count 8.2 thou/uL (4.8-10.8)
[2021-01-28 04:56] LABS: Anion Gap 11 mmol/L (10-20); BUN (Urea Nitrogen) 37 mg/dL (8.4-25.7); Calc. Creatinine Clearance 37 mL/min (70-130); Calcium 8.9 mg/dL (7.8-10.44); Carbon Dioxide 27 mmol/L (23-31); Chloride 112 mmol/L (98-107); Glucose 117 mg/dL (83-110); Potassium 4.1 mmol/L (3.5-5.1); Sodium 146 mmol/L (136-145)
[2021-01-28 05:01] LABS: INR-International Normal Ratio 3.5; Prothrombin Time 35.1 sec (12.0-14.7)
[2021-01-28] MEDS: Sodium Chloride 0.9% 1,000 ML IV SCH ×2 (05:30→15:08)
[2021-01-28] MEDS: Pantoprazole 40 MG VIAL IVP SCH (08:43)
[2021-01-28 12:24] VITALS: BP 156/72; TEMP 97.7
== END 2021-01-28 16:25 | disposition home or self-care (01) | DRG 327 ==
LOC: ERS 04:48 → 2NO 17:02
PROVIDERS: ADMIT Family Medicine; ATTEND Internal Medicine
PROC: 0D9670Z Drainage of Stomach with Drainage Device, Via Natural or Artificial Opening (ICD-10-PCS; 2021-01-25)
PROC: 0DB68ZX Excision of Stomach, Via Natural or Artificial Opening Endoscopic, Diagnostic (ICD-10-PCS; principal; 2021-01-27)
PROC: 0DQ68ZZ Repair Stomach, Via Natural or Artificial Opening Endoscopic (ICD-10-PCS; 2021-01-27)
DX: K44.9 Diaphragmatic hernia without obstruction or gangrene (principal); N17.9 Acute kidney failure, unspecified; K22.10 Ulcer of esophagus without bleeding; Z20.822 Contact with and (suspected) exposure to COVID-19; Z66 Do not resuscitate; N18.30 Chronic kidney disease, stage 3 unspecified; K21.00 Gastro-esophageal reflux disease with esophagitis, without bleeding; K25.9 Gastric ulcer, unspecified as acute or chronic, without hemorrhage or perforation; I12.9 Hypertensive chronic kidney disease with stage 1 through stage 4 chronic kidney disease, or unspecified chronic kidney disease; N40.0 Benign prostatic hyperplasia without lower urinary tract symptoms; E78.5 Hyperlipidemia, unspecified; R79.89 Other specified abnormal findings of blood chemistry; Z95.0 Presence of cardiac pacemaker; Z86.73 Personal history of transient ischemic attack (TIA), and cerebral infarction without residual deficits; Z95.2 Presence of prosthetic heart valve; Z87.891 Personal history of nicotine dependence; Z79.01 Long term (current) use of anticoagulants; Z79.899 Other long term (current) drug therapy
CPT/HCPCS: 36415; 74018; 74177; 80048; 80053; 80061; 82553; 83690; 83880; 84484; 85025; 85610; 85730; 88305; 88312; 88342; 93005; 96374; 96375; 96376; C9113; J1650; J2270; J2405; J2550; J2704; J3010; J3230; J3490; J7050; Q9967; U0003; U0005

== ENCOUNTER 2021-02-22 09:52 | Outpatient (CLI) | payer MEDICARE, BC | END 2021-02-22 09:53 | disposition home or self-care (01) | LOC: NM 09:52 | PROVIDERS: ATTEND Internal Medicine Cardiovascular Disease | DX: I51.7 Cardiomegaly (principal) | CPT/HCPCS: 78803; A9538 ==

== ENCOUNTER 2021-04-04 13:26 | Outpatient (CLI) | payer MEDICARE, BC ==
[2021-04-04 14:58] LABS: #Eosinphils 0.3 10x3/uL (0.0-0.5); #Monocytes 0.7 10x3/uL (0.0-1.1); #Neutrophils 3.4 10x3/uL (1.5-8.4); %Basophils 0.3 % (0.0-2.0); %Eosinophils 4.4 % (0.0-6.0); %Lymphocytes 27.2 % (18.0-47.0); %Neutrophils 56.8 % (40.0-75.0); Hemoglobin 16.4 g/dL (13.5-17.5); Mean Corpuscular HGB CONC 33.1 g/dL (32.0-36.0); Mean Corpuscular Hemoglobin 29.8 pg (27.0-33.0); Platelet Count 186 10x3/uL (150-450); RBC Distribution Width 14.1 % (11.5-14.5); Red Blood Cell (RBC) Count 5.51 10x6/uL (4.32-5.72); White Blood Cell (WBC) Count 6.1 10x3/uL (3.5-10.5)
[2021-04-04 15:11] LABS: Anion Gap 13 mmol/L (10-20); BUN (Urea Nitrogen) 27 mg/dL (8.4-25.7); Calc. Creatinine Clearance 0 mL/min (70-130); Calcium 9.3 mg/dL (7.8-10.44); Carbon Dioxide 28 mmol/L (23-31); Chloride 106 mmol/L (98-107); Glucose 89 mg/dL (83-110); Potassium 4.8 mmol/L (3.5-5.1); Sodium 142 mmol/L (136-145)
[2021-04-05 15:33] LABS: SARS-CoV-2 PCR by NAA Not Detected (NotDetected)
== END 2021-04-04 13:27 | disposition home or self-care (01) ==
LOC: LABBT 13:26
PROVIDERS: ATTEND Specialist
DX: Z01.818 Encounter for other preprocedural examination (principal); Z20.822 Contact with and (suspected) exposure to COVID-19
CPT/HCPCS: 80048; 85025; U0003; U0005; 93005; 93010

== ENCOUNTER 2021-04-09 06:11 | Inpatient (IN) | payer MEDICARE, BC ==
[2021-04-08 09:49] VITALS: BMI 25.0
[2021-04-09] MEDS ORDERED: ceFAZolin Sodium (SDC) 2 GM/100 ML BAG ONE (06:20)
[2021-04-09] MEDS ORDERED: Ketorolac Tromethamine 30 MG/ML VIAL ONE (06:21)
[2021-04-09] MEDS ORDERED: Acetaminophen 500 MG TAB ONE (06:21)
[2021-04-09] MEDS ORDERED: Fentanyl 250 MCG/5 ML VIAL ONE (06:48)
[2021-04-09] MEDS ORDERED: Lidocaine 1% w/Epinephrine 1:100K 20 ML VIAL ONE (06:50)
[2021-04-09] MEDS ORDERED: Bupivacaine 0.25% HCL 30 ML VIAL ONE (06:50)
[2021-04-09] MEDS ORDERED: Lidocaine 2% Jelly 5 ML TUBE ONE (07:58)
[2021-04-09] MEDS ORDERED: Dexamethasone 20 MG/5 ML VIAL ONE (08:17)
[2021-04-09] MEDS ORDERED: PROPOFOL 200 MG/20 ML VIAL ONE (08:17)
[2021-04-09] MEDS ORDERED: Ondansetron PF 4 MG/2 ML Vial ONE (08:17)
[2021-04-09] MEDS ORDERED: Rocuronium Bromide 10 MG/ML (10ML VIAL) ONE (08:17)
[2021-04-09] MEDS ORDERED: Glycopyrrolate 0.2 MG/ML 5 ML SYRINGE ONE (08:17)
[2021-04-09] MEDS ORDERED: Lidocaine 1% PF 5 ML VIAL ONE (08:17)
[2021-04-09] MEDS ORDERED: Promethazine HCl 25 MG/ML VIAL IM PRN ×2 (11:09→13:26)
[2021-04-09] MEDS ORDERED: Promethazine HCl 25 MG/ML VIAL IVPB PRN (11:09)
[2021-04-09] MEDS ORDERED: Ondansetron HCl/PF 4 MG/2 ML Vial IVP PRN (11:09)
[2021-04-09] MEDS ORDERED: Fentanyl 100 MCG/2 ML VIAL ONE ×3 (11:31→13:44)
[2021-04-09] MEDS ORDERED: Ondansetron PF 4 MG/2 ML Vial IVP PRN (13:26)
[2021-04-09] MEDS ORDERED: Morphine 2 MG/ML VIAL SLOW IVP PRN (13:26)
[2021-04-09] MEDS ORDERED: hydrALAZINE 20 MG/ML VIAL SLOW IVP PRN (13:26)
[2021-04-09] MEDS ORDERED: Morphine 4 MG/ML VIAL SLOW IVP PRN ×2 (13:26→14:00)
[2021-04-09 15:11] LABS: Hemoglobin 16.8 g/dL (14.0-18.0); Platelet Count 159 thou/uL (130-400)
[2021-04-09 15:23] LABS: INR-International Normal Ratio 1.2; Prothrombin Time 15.3 sec (12.0-14.7)
[2021-04-09 15:32] LABS: Anion Gap 13 mmol/L (10-20); BUN (Urea Nitrogen) 28 mg/dL (8.4-25.7); Calc. Creatinine Clearance 36 mL/min (70-130); Calcium 9.2 mg/dL (7.8-10.44); Carbon Dioxide 27 mmol/L (23-31); Chloride 105 mmol/L (98-107); Glucose 166 mg/dL (83-110); Potassium 4.7 mmol/L (3.5-5.1); Sodium 140 mmol/L (136-145)
[2021-04-09] MEDS: D5 1/2 NS w/20 mEq KCL 1,000 ML IV SCH ×2 (15:47→21:47)
[2021-04-09] MEDS ORDERED: Finasteride 5 MG TAB PO SCH (21:00)
[2021-04-09] MEDS ORDERED: Warfarin Sodium 5 MG TAB PO SCH (21:00)
[2021-04-09] MEDS ORDERED: Famotidine 20 MG TAB PO SCH (21:00)
[2021-04-09] MEDS ORDERED: Famotidine/PF 20 mg/2ml Vial SLOW IVP SCH (21:00)
[2021-04-09] MEDS ORDERED: Enoxaparin Sodium 40 MG/0.4 ML SYRINGE SC SCH (21:00)
[2021-04-09] MEDS ORDERED: Rosuvastatin 20 MG TAB PO SCH (21:00)
[2021-04-09] MEDS: Carvedilol 6.25 MG TAB PO SCH (21:44)
[2021-04-09] MEDS: Potassium Citrate 10 MEQ TAB PO SCH (21:46)
[2021-04-10 06:15] LABS: #Lymphocytes 0.7 thou/uL (1.20-3.40); #Monocytes 0.8 thou/uL (0.11-0.59); #Neutrophils 9.3 thou/uL (1.40-6.50); %Eosinophils 0.2 % (0.0-10.0); %Lymphocytes 6.2 % (21.0-51.0); %Monocytes 7.3 % (0.0-10.0); %Neutrophils 86.2 % (42.0-75.0); Hemoglobin 14.8 g/dL (14.0-18.0); Mean Corpuscular HGB CONC 33.5 g/dL (32.0-36.0); Mean Corpuscular Hemoglobin 31.4 pg (27.0-31.0); Mean Corpuscular Volume 93.8 fL (78.0-98.0); Mean Platelet Volume 7.7 fL (7.4-10.4); Platelet Count 158 thou/uL (130-400); RBC Distribution Width 13.3 % (11.5-14.5); White Blood Cell (WBC) Count 10.8 thou/uL (4.8-10.8)
[2021-04-10 06:35] LABS: Anion Gap 11 mmol/L (10-20); BUN (Urea Nitrogen) 22 mg/dL (8.4-25.7); Calc. Creatinine Clearance 40 mL/min (70-130); Calcium 8.6 mg/dL (7.8-10.44); Carbon Dioxide 23 mmol/L (23-31); Chloride 107 mmol/L (98-107); Glucose 189 mg/dL (83-110); Potassium 4.4 mmol/L (3.5-5.1); Sodium 137 mmol/L (136-145)
[2021-04-10] MEDS ORDERED: D5 1/2 NS w/20 mEq KCL 1,000 ML IV SCH (08:00)
[2021-04-10] MEDS: Carvedilol 6.25 MG TAB PO SCH (08:54)
[2021-04-10] MEDS: Potassium Citrate 10 MEQ TAB PO SCH (08:57)
[2021-04-10] MEDS ORDERED: Amlodipine 5 MG TAB PO SCH (09:00)
[2021-04-10] MEDS ORDERED: Furosemide 20 MG TAB PO SCH (09:00)
[2021-04-10] MEDS ORDERED: Acetaminophen 325 MG TAB PO PRN (11:20)
[2021-04-10] MEDS ORDERED: HYDROcodone/Acetaminophen 7.5/325 mg Tablet PO PRN (11:20)
[2021-04-10 13:34] VITALS: BP 128/76; TEMP 97.2
[2021-04-10] MEDS ORDERED: Warfarin Sodium 5 MG TAB PO SCH (17:00)
== END 2021-04-10 15:19 | disposition home or self-care (01) | DRG 328 ==
LOC: SDC 06:11 → SURG A 11:30 → EDSTATUS 13:15
PROVIDERS: ADMIT Specialist; ATTEND Specialist
PROC: 0DQ64ZZ Repair Stomach, Percutaneous Endoscopic Approach (ICD-10-PCS; principal; 2021-04-09)
PROC: 0DV44ZZ Restriction of Esophagogastric Junction, Percutaneous Endoscopic Approach (ICD-10-PCS; 2021-04-09)
DX: K44.9 Diaphragmatic hernia without obstruction or gangrene (principal); K66.8 Other specified disorders of peritoneum; I10 Essential (primary) hypertension; E78.5 Hyperlipidemia, unspecified; N40.0 Benign prostatic hyperplasia without lower urinary tract symptoms; K21.9 Gastro-esophageal reflux disease without esophagitis; Z20.822 Contact with and (suspected) exposure to COVID-19; Z95.2 Presence of prosthetic heart valve; Z95.0 Presence of cardiac pacemaker; Z87.891 Personal history of nicotine dependence; Z79.899 Other long term (current) drug therapy; Z79.02 Long term (current) use of antithrombotics/antiplatelets
CPT/HCPCS: 36415; 80048; 85014; 85018; 85025; 85049; 85610; C1713; C1776; J0690; J1100; J1650; J1885; J2405; J2704; J3010; J3480; S0020

== ENCOUNTER 2023-11-17 07:47 | Outpatient (CLI) | payer MEDICARE | END 2023-11-17 07:48 | disposition home or self-care (01) | LOC: BICULT 07:47 | PROVIDERS: ATTEND Internal Medicine Nephrology | DX: I13.10 Hypertensive heart and chronic kidney disease without heart failure, with stage 1 through stage 4 chronic kidney disease, or unspecified chronic kidney disease (principal); N18.9 Chronic kidney disease, unspecified; N17.9 Acute kidney failure, unspecified; N20.0 Calculus of kidney; R80.9 Proteinuria, unspecified; I73.9 Peripheral vascular disease, unspecified; K21.9 Gastro-esophageal reflux disease without esophagitis; E78.5 Hyperlipidemia, unspecified; M19.90 Unspecified osteoarthritis, unspecified site; K57.90 Diverticulosis of intestine, part unspecified, without perforation or abscess without bleeding; D63.1 Anemia in chronic kidney disease | CPT/HCPCS: 76770; 93975 ==